=== PATIENT | female | born 1985 | race Caucasian/White ===

== ENCOUNTER 2016-10-06 05:05 | Inpatient (IN) | payer MEDICAID ==
[~2016-10-06 05:05] MED LIST: cefOXitin 2 GM in Sodium Chloride 0.9% 50 ML IV ONE
[2016-10-06] MEDS ORDERED: Scopolamine 1.5 MG Transdermal Patch TOP SCH (05:30)
[2016-10-06] MEDS ORDERED: Celecoxib 200 MG Cap PO ONE (05:30)
[2016-10-06] MEDS ORDERED: Gabapentin 300 MG Cap PO ONE (05:30)
[2016-10-06] MEDS ORDERED: Dextrose 5%-Lactated Ringers 1,000 ML IV SCH (05:30)
[2016-10-06] MEDS ORDERED: Acetaminophen 500 MG Tab PO ONE (05:30)
[2016-10-06] MEDS ORDERED: Bupivacaine 0.5%/EPINEPHrine 1:200,000 50 ML MDV ONE (06:46)
[2016-10-06] MEDS ORDERED: Albuterol/Ipratropium 3.0-0.5 MG/3 ML Neb Soln NEB ONE (07:00)
[2016-10-06] MEDS ORDERED: fentaNYL 250 MCG/5 ML SDV ONE ×2 (07:09→07:55)
[2016-10-06] MEDS ORDERED: Dexamethasone 4 MG/ML SDV ONE (07:09)
[2016-10-06] MEDS ORDERED: Ondansetron 4 MG/2 ML SDV ONE (07:09)
[2016-10-06] MEDS ORDERED: Neostigmine Methylsulfate 1 MG/ML 5 ML Syringe ONE (07:09)
[2016-10-06] MEDS ORDERED: Propofol 200 MG/20 ML SDV ONE (07:09)
[2016-10-06] MEDS ORDERED: Rocuronium 50 MG/5 ML Vial ONE ×2 (07:09→08:31)
[2016-10-06] MEDS ORDERED: cefOXitin 2 GM in Sodium Chloride 0.9% 50 ML IV ONE (07:15)
[2016-10-06] MEDS ORDERED: HYDROmorphone/Normal Saline 15 MG/30 ML PCA IV PRN (07:29)
[2016-10-06] MEDS ORDERED: Naloxone 0.4 MG/ML SDV IV PRN (07:29)
[2016-10-06] MEDS ORDERED: Ketamine 500 MG/5 ML MDV IV SCH (07:30)
[2016-10-06] MEDS ORDERED: Ropivacaine 49 ML, Dexamethasone 8 MG, EPINEPHrine 0.4 MG, Sodium Chloride 0.9% 28.6 ML NERVRT SCH ×4 (07:30)
[2016-10-06] MEDS ORDERED: Lidocaine 2% 100 MG/5 ML Syringe IVPUSH ONE (07:30)
[2016-10-06] MEDS ORDERED: Lactated Ringers 1,000 ML ONE ×2 (07:55)
[2016-10-06] MEDS ORDERED: Meropenem 500 MG SDV ONE (08:48)
[2016-10-06] MEDS ORDERED: Insulin Aspart 100 Units/ML 3 ML Pen SUBCUT SCH (09:30)
[2016-10-06] MEDS: Lidocaine 0.4%/D5W 2 GM/500 ML BAG IV SCH ×2 (10:00→15:00)
[2016-10-06] MEDS ORDERED: Albuterol/Ipratropium 3.0-0.5 MG/3 ML Neb Soln INH PRN (10:48)
[2016-10-06] MEDS ORDERED: Metoclopramide 10 MG/2 ML SDV IVPUSH PRN (10:57)
[2016-10-06] MEDS ORDERED: 50% Dextrose in Water 50 ML Syringe IV PRN (10:59)
[2016-10-06] MEDS ORDERED: diphenhydrAMINE 50 MG/ML SDV IVPUSH PRN (10:59)
[2016-10-06] MEDS ORDERED: SCOPOLAMINE PATCH CHECK TOP SCH (11:00)
[2016-10-06] MEDS ORDERED: Glucagon,Human Recombinant 1 MG Vial IM PRN (11:00)
[2016-10-06] MEDS ORDERED: SCOPOLAMINE PATCH ASK TOP SCH (11:00)
[2016-10-06] MEDS ORDERED: Ondansetron 4 MG/2 ML SDV IVPUSH PRN (11:00)
[2016-10-06] MEDS ORDERED: Pantoprazole 40 MG Vial IVPUSH SCH (11:00)
[2016-10-06] MEDS ORDERED: Labetalol 20 MG/4 ML Syringe IVPUSH PRN (11:00)
[2016-10-06] MEDS ORDERED: Insulin Aspart 100 Units/ML 3 ML Pen SUBCUT PRN (11:00)
[2016-10-06] MEDS: hydrOXYzine HCl 50 MG/ML SDV IM PRN ×2 (11:07→22:15)
[2016-10-06] MEDS: Dextrose 5%-Lactated Ringers 1,000 ML IV SCH ×2 (11:13→23:14)
[2016-10-06] MEDS ORDERED: Acetaminophen 325 MG Tab PO SCH (12:00)
[2016-10-06] MEDS: Albuterol/Ipratropium 3.0-0.5 MG/3 ML Neb Soln INH SCH ×3 (12:31→21:26)
[2016-10-06] MEDS: Gabapentin 300 MG Cap PO SCH ×2 (13:50→20:54)
[2016-10-06] MEDS: cefOXitin 2 GM in Sodium Chloride 0.9% 50 ML IV SCH ×2 (13:50→20:53)
[2016-10-06] MEDS: SCOPOLAMINE PATCH PLACEMENT TOP SCH (13:52)
[2016-10-06] MEDS ORDERED: MVI, Adult with Vitamin K 10 ML, Thiamine 200 MG, Chromium/Copper/Mang/Selen/Zn 1 ML in... IV SCH ×4 (16:00)
[2016-10-06] MEDS: Heparin Sodium 5,000 Units/ML Vial SUBCUT SCH (17:05)
[2016-10-06] MEDS: Acetaminophen/HYDROcodone 325-5 MG Tab PO PRN ×2 (17:06→20:54)
[2016-10-06] MEDS ORDERED: Insulin Detemir 100 Units/ML 3 ML Pen SUBCUT SCH (21:00)
[2016-10-06] MEDS ORDERED: Insulin Aspart 100 Units/ML 3 ML Pen SUBCUT ONE (21:10)
[2016-10-06] MEDS ORDERED: HYDROmorphone/Normal Saline 15 MG/30 ML PCA IV SCH (23:45)
[2016-10-07] MEDS: Lidocaine 0.4%/D5W 2 GM/500 ML BAG IV SCH (00:40)
[2016-10-07] MEDS ORDERED: Lidocaine 0.4%/D5W 2 GM/500 ML BAG IV SCH (01:45)
[2016-10-07] MEDS: cefOXitin 2 GM in Sodium Chloride 0.9% 50 ML IV SCH ×2 (02:35→08:15)
[2016-10-07] MEDS ORDERED: Insulin Aspart 100 Units/ML 3 ML Pen SUBCUT ONE (05:06)
[2016-10-07] MEDS ORDERED: Dextrose 5%-Lactated Ringers 1,000 ML IV SCH (05:15)
[2016-10-07] MEDS: Heparin Sodium 5,000 Units/ML Vial SUBCUT SCH (06:05)
[2016-10-07] MEDS: Albuterol/Ipratropium 3.0-0.5 MG/3 ML Neb Soln INH SCH (07:04)
[2016-10-07] MEDS ORDERED: Acetaminophen/HYDROcodone 325-10 MG Tab PO PRN (07:54)
[2016-10-07] MEDS ORDERED: Celecoxib 200 MG Cap PO SCH (08:00)
[2016-10-07 08:05] VITALS: BP 116/66
[2016-10-07] MEDS: Gabapentin 300 MG Cap PO SCH (08:09)
[2016-10-07] MEDS: SCOPOLAMINE PATCH PLACEMENT TOP SCH (08:16)
[2016-10-08] MEDS ORDERED: Cyanocobalamin (Vitamin B12) 1,000 MCG/ML SDV IM ONE (09:00)
--- NOTE | 2016-10-09 09:04 | CR ---
Postop revision jejunostomy. No gross evidence for contrast leakage. Nondilated small bowel loops.
--- NOTE | 2016-10-09 14:17 | PN ---
DATE OF SERVICE: 10/07/2016 The patient has been afebrile with stable vital signs. Pain control is still a little bit of an issue. She is on PRN PHYSICAL THERAPIST presently. I think we will go up to some higher dose hydrocodone with her [place]. Blood sugar is also quite high, and when it gets high the patient controls it by means of the sliding scale. The IV will be keet open and will go up to a regular diet from the full liquid, which should probably be helpful in terms of the blood sugar control. If blood sugar control becomes reasonable and pain control is also satisfactory with the adjustments, she may be ready for discharge home later today. Nursing will call when and if that decision is being made. Regan Rendon MD /[id number]
--- NOTE | 2016-10-10 12:18 | OR ---
DATE OF PROCEDURE: 10/06/2016 PREOPERATIVE DIAGNOSIS: Partial small-bowel obstruction. POSTOPERATIVE DIAGNOSIS: Partial small-bowel obstruction associated with: 1. Small-bowel volvulus. 2. Focal stricture at jejunojejunostomy. OPERATIVE PROCEDURE: Diagnostic laparoscopy with: 1. Reduction of small-bowel volvulus and closure of internal hernia (55172). 2. Small-bowel resection (44317). ANESTHESIA: General. SPINDLE REPAIRER: Laurie Huntley PA-C. INDICATIONS FOR PROCEDURE: This is a 30-year-old, status post previous Alysa-en-Y gastric bypass, presenting with postprandial crampy abdominal pain. The plan is to proceed with diagnostic laparoscopy with reduction of any volvulus that might be identified as well as lysis of adhesions and/or small-bowel resection. Potential risks of the procedure including bleeding, infection, leaks from various GI tract closures, possible recurrent or persistent symptoms over time were all reviewed along with remote possibility of cardiopulmonary, septic, or hemorrhagic complications leading to were discussed, and the patient wishes to proceed. As discussed with the patient preoperatively, if the jejunojejunostomy needs to be resected, we would reconstruct that with a more distal configuration. The latter may result in more frequent loose bowel movements and potential malnutrition, but it would likely result in improved metabolic status of the patient. DETAILS OF PROCEDURE: The patient was taken to the operating room and after general endotracheal anesthesia was induced, she was placed in a lithotomy position. A Galarza catheter was inserted and the abdomen was then prepped and draped, and a left lower quadrant transverse incision was made. The peritoneal cavity entered under direct vision with an Optiview trocar and inflated to 15 mmHg pressure with CO2. Laparoscope was then reinserted. No underlying trocar insertion site injuries were seen. Additionally, 4 trocars were placed across the upper and mid abdomen and general exploration was undertaken. The patient was noted to have a focal volvulus of the Alysa limb and the biliary pancreatic limb along with the jejunojejunostomy through a defect and the mesentery underlying the jejunojejunostomy. This was reduced at this point and at that point, the patient was noted to have what appeared to be a focal stricture where the Alysa limb entered the jejunojejunostomy. The decision was made at this point to divide that and then reconstruct the jejunojejunostomy with more distal configuration as outlined above. The Alysa limb was measured at this point to be 45 cm from the gastrojejunostomy. We did not want to be overly aggressive in this case and given this, the Alysa limb was divided more or less flush with the jejunojejunostomy with a CHINEDU stapler. A small amount of mesentery was then divided and again the final Alysa limb at this point was 45 cm in length. We wished not to be overly aggressive in this case and the ileocecal valve was identified and the small bowel then traced out 275 cm proximal to that, at that point the Alysa limb was anastomosed to the small bowel at that location with 2 internal firings of the CHINEDU puga loads and the common opening was closed transversely with the purple CHINEDU loads. The underlying mesenteric defect, which was now a new mesenteric defect, was closed with a series of 0 Ethibond sutures and also reinforced with fibrin sealant. Of note, the biliopancreatic limb was marked out at 410 cm. At this point, the abdomen was irrigated with antibiotic-containing saline solution. No further problems were noted. The trocars were removed. The peritoneal cavity was deflated. The fascia at the 12 mm sites was closed with 0 Vicryl stitch and the skin with 4-0 Vicryl skin stitch. Physician assistant plant control operator, Laurie Huntley, played an essential role in assisting in this case, helping to position the patient, retract structures as needed, as well as suturing and cutting sutures when indicated. Her presence improved the patient's safety and decreased the operative time. Regan Rendon MD /[id number]
--- NOTE | 2016-10-22 17:37 | DISCH ---
FINAL DIAGNOSES: 1. Partial small bowel obstruction associated with;. a. Small bowel volvulus. b. Focal stricture, jejunojejunostomy. 2. Bariatric surgery status. 3. History of depression. 4. History of type 1 diabetes mellitus. 5. History of peripheral neuropathy. 6. History of hyperlipidemia. 7. Marginal ulcer requiring esophagogastrectomy. OPERATIVE PROCEDURE: This was done on 10/06/2016, diagnostic laparoscopy with; 1. Reduction of small bowel volvulus and closure of internal hernia. 2. Small bowel resection. HOSPITAL COURSE: This is a 30-year-old status post Alysa-en-Y gastric bypass. In the more recent past, she has had esophagogastrectomy with Alysa-en-Y reconstruction for a marginal ulcer that was refractory to medical management. She now presents with postprandial crampy abdominal pain. On the day of admission, the patient underwent a diagnostic laparoscopy and was noted to have a degree of small bowel volvulus, along with some stricturing at the jejunojejunostomy. The volvulus was reduced and internal hernia corrected, and small bowel resection accomplished to reconnect the Alysa limb somewhat distally on the common limb to reduce the area of partial obstruction at that level. Postoperatively, the patient had no significant problems. She was converted over to oral pain medication and was discharged home on postop day #1, tolerating at that time a regular post-gastric bypass diet. She will be following up with Dr. Rendon in [facility] a week from Sunday. DISCHARGE MEDICATIONS: Medication on discharge will include her home medications some additional [place], #40, in addition to her usual doses that she had at home.
== END 2016-10-07 10:58 | disposition home or self-care (01) | DRG 346 ==
LOC: JP.SDSSCHI 05:05 → JP.SDS 05:05 → UNDOADMIN 05:05 → EDSTATUS 08:45 → JP.SDSSCHI 09:50 → JP.2SS 09:50
PROVIDERS: ADMIT Surgery; ATTEND Surgery
PROC: 0DSA4ZZ Reposition Jejunum, Percutaneous Endoscopic Approach (ICD-10-PCS; principal; 2016-10-06)
PROC: 0DB84ZX Excision of Small Intestine, Percutaneous Endoscopic Approach, Diagnostic (ICD-10-PCS; principal; 2016-10-06)
DX: K56.69 Other intestinal obstruction (principal); K56.2 Volvulus
CPT/HCPCS: 36415; 74240; 74240-26; 80053; 82607; 82728; 82962; 83036; 83735; 84100; 84425; 85027; 88307; 94640-76; A9270-GY; C9113; J0171; J0694; J1100; J1170; J1644; J2001; J2185; J2405; J2704; J2795; J3010; J3410; J3411; J7030; J7042; J7050; J7120; J7620

== ENCOUNTER 2017-06-07 05:25 | Day surgery (SDC) | payer MEDICAID ==
[~2017-06-07 05:25] MED LIST changes: +Cyanocobalamin (Vitamin B12) 1,000 MCG/ML SDV IM ONE; +Glycopyrrolate 0.2 MG/ML 2 ML SDV IVPUSH ONE; +Lactated Ringers 1,000 ML IV ONE; +MVI, Adult with Vitamin K 10 ML, Thiamine 200 MG, Chromium/Copper/Mang/Selen/Zn 1 ML in... IV ONE; +Midazolam 1 MG/ML 2 ML SDV ONE; +Propofol 200 MG/20 ML SDV ONE; -cefOXitin 2 GM in Sodium Chloride 0.9% 50 ML IV ONE; +fentaNYL 100 MCG/2 ML SDV ONE
[2017-06-07] MEDS ORDERED: Lactated Ringers 1,000 ML IV SCH (06:30)
[2017-06-07] MEDS ORDERED: Cyanocobalamin (Vitamin B12) 1,000 MCG/ML SDV IM ONE (06:30)
[2017-06-07] MEDS ORDERED: Propofol 200 MG/20 ML SDV ONE (07:07)
[2017-06-07] MEDS ORDERED: Midazolam 1 MG/ML 2 ML SDV ONE (07:07)
[2017-06-07] MEDS ORDERED: fentaNYL 100 MCG/2 ML SDV ONE (07:07)
[2017-06-07] MEDS ORDERED: Glycopyrrolate 0.2 MG/ML 2 ML SDV IVPUSH ONE (07:30)
[2017-06-07] MEDS ORDERED: MVI, Adult with Vitamin K 10 ML, Thiamine 200 MG, Chromium/Copper/Mang/Selen/Zn 1 ML in... IV ONE ×4 (09:00)
[2017-06-07 09:33] VITALS: BP 107/67
--- NOTE | 2017-06-07 11:29 | OR ---
DATE OF PROCEDURE: 06/07/2017 PREOPERATIVE DIAGNOSIS: Dysphagia, status post Alysa-en-Y gastric bypass. POSTOPERATIVE DIAGNOSIS: Dysphagia, status post Alysa-en-Y gastric bypass with normal examination other than for retained fragments of solid food within the esophagus. OPERATIVE PROCEDURE: Upper GI endoscopy. ANESTHESIA: IV sedation. INDICATION FOR PROCEDURE: The patient is status post a Alysa-en-Y gastric bypass followed by a more recent revision that being done in December 2015, presenting with some dysphagia as well as some discomfort after eating. The plan is to proceed with an upper GI endoscopy with biopsies and/or dilation as indicated. Potential risks including bleeding and perforation were discussed, and the patient wishes to proceed. DETAILS OF PROCEDURE: The patient was taken to the operating room and placed in a left lateral decubitus position. IV sedation was administered, after which the upper GI endoscope was passed orally through the length of the esophagus, through the esophagojejunostomy, and roughly 3 cm into the Alysa limb. There were some retained scattered solid yellow fragments of food in the esophagus, but this was otherwise associated with absolutely no areas of inflammation or stricturing. The esophagus, esophagojejunostomy, and the visualized portion of the Alysa limb were completely all uninflamed and completely wide open. There was no retained food or fluid within the Alysa limb, i.e. no indication of a more distal obstruction. The scope was then withdrawn and the procedure then concluded. The patient may be developing some esophageal dysmotility related to her longstanding type 1 diabetes mellitus. She will be instructed to drink some liquids after a meal and then web marketing intern upright position for at least a few minutes to help washout the contents in the esophagus. From a p.r.n. standpoint, she can take Gaviscon if she is having some burning sensation as well. She will follow up with Laurie Huntley in 1 month. Regan Rendon MD /[id number]
== END 2017-06-07 09:35 | disposition home or self-care (01) ==
LOC: JP.SDS 05:25 → EEVIPCON 05:25 → JP.SDS 09:35
PROVIDERS: ATTEND Surgery
DX: R13.10 Dysphagia, unspecified (principal); T18.128A Food in esophagus causing other injury, initial encounter; E11.9 Type 2 diabetes mellitus without complications; E66.9 Obesity, unspecified; F32.9 Major depressive disorder, single episode, unspecified; K21.9 Gastro-esophageal reflux disease without esophagitis; Z98.84 Bariatric surgery status; X58.XXXA Exposure to other specified factors, initial encounter; Z88.8 Allergy status to other drugs, medicaments and biological substances; F17.200 Nicotine dependence, unspecified, uncomplicated
CPT/HCPCS: 43235; 82962; J2250; J2704; J3010; J3411; J3420; J7120; J3490

== ENCOUNTER 2017-12-03 07:10 | Inpatient (IN) | payer MEDICAID ==
[~2017-12-03 07:10] MED LIST changes: -Cyanocobalamin (Vitamin B12) 1,000 MCG/ML SDV IM ONE; -Glycopyrrolate 0.2 MG/ML 2 ML SDV IVPUSH ONE; -Lactated Ringers 1,000 ML IV ONE; -MVI, Adult with Vitamin K 10 ML, Thiamine 200 MG, Chromium/Copper/Mang/Selen/Zn 1 ML in... IV ONE
[2017-12-03] MEDS ORDERED: Glycopyrrolate 0.2 MG/ML 2 ML SDV IVPUSH ONE (08:00)
[2017-12-03] MEDS: Dextrose 5%-Lactated Ringers 1,000 ML IV SCH ×3 (08:08→23:25)
[2017-12-03] MEDS ORDERED: Naloxone 0.4 MG/ML SDV IV PRN (11:07)
[2017-12-03] MEDS ORDERED: HYDROmorphone/Normal Saline 15 MG/30 ML PCA IV PRN (11:07)
[2017-12-03] MEDS ORDERED: Glucose Gel 15 GM in 37.5 GM Tube PO PRN (11:18)
[2017-12-03] MEDS ORDERED: 50% Dextrose in Water 50 ML Syringe IVPUSH PRN (11:18)
[2017-12-03] MEDS ORDERED: Glucagon,Human Recombinant 1 MG Vial IM PRN (11:18)
[2017-12-03] MEDS: Pantoprazole 40 MG Vial IV SCH (13:20)
[2017-12-03] MEDS: Insulin Aspart 100 Units/ML 3 ML Pen SUBCUT PRN ×2 (17:10→21:01)
[2017-12-03] MEDS: ClonazePAM 1 MG Tab PO SCH (21:00)
[2017-12-03] MEDS ORDERED: Insulin Detemir 100 Units/ML 3 ML Pen SUBCUT SCH (21:00)
[2017-12-03] MEDS ORDERED: Venlafaxine 75 MG Cap.ER PO ONE (21:00)
[2017-12-03] MEDS: Gabapentin 300 MG Cap PO SCH (21:02)
[2017-12-03] MEDS: Insulin Detemir 100 Units/ML 3 ML Pen SUBCUT SCH (21:03)
[2017-12-03] MEDS: lamoTRIgine 100 MG Tab PO SCH (21:03)
[2017-12-04] MEDS: Ondansetron 4 MG/2 ML SDV IV PRN ×2 (01:38→17:41)
[2017-12-04] MEDS ORDERED: cefOXitin 2 GM Vial ONE (06:55)
[2017-12-04] MEDS ORDERED: fentaNYL 250 MCG/5 ML SDV ONE ×3 (07:47→11:59)
[2017-12-04] MEDS ORDERED: Rocuronium 50 MG/5 ML Vial ONE (07:48)
[2017-12-04] MEDS ORDERED: Succinylcholine 200 MG/10 ML MDV ONE (07:48)
[2017-12-04] MEDS ORDERED: Glycopyrrolate 0.2 MG/ML 5 ML MDV ONE (07:48)
[2017-12-04] MEDS ORDERED: Ondansetron 4 MG/2 ML SDV ONE (07:48)
[2017-12-04] MEDS ORDERED: Neostigmine Methylsulfate 1 MG/ML 5 ML Syringe ONE (07:48)
[2017-12-04] MEDS ORDERED: Dexamethasone 4 MG/ML SDV ONE (07:48)
[2017-12-04] MEDS ORDERED: Propofol 200 MG/20 ML SDV ONE (07:48)
[2017-12-04] MEDS ORDERED: Ropivacaine 44 ML, Dexamethasone 8 MG, EPINEPHrine 0.4 MG, Sodium Chloride 0.9% 33.6 ML NERVRT SCH ×4 (08:30)
[2017-12-04] MEDS ORDERED: cefOXitin 2 GM in Sodium Chloride 0.9% 50 ML IV ONE (08:30)
[2017-12-04] MEDS ORDERED: Ketamine 500 MG/5 ML MDV IV SCH (08:30)
[2017-12-04] MEDS ORDERED: Lidocaine 2% 100 MG/5 ML Syringe IVPUSH ONE (08:30)
[2017-12-04] MEDS ORDERED: Lidocaine 0.4%/D5W 2 GM/500 ML BAG IV SCH (08:30)
[2017-12-04] MEDS: Dextrose 5%-Lactated Ringers 1,000 ML IV SCH (08:55)
[2017-12-04] MEDS ORDERED: Venlafaxine 75 MG Cap.ER PO SCH (09:00)
[2017-12-04] MEDS: lamoTRIgine 100 MG Tab PO SCH ×2 (10:37→21:37)
[2017-12-04] MEDS: Gabapentin 300 MG Cap PO SCH ×3 (10:37→21:38)
[2017-12-04] MEDS: ClonazePAM 1 MG Tab PO SCH ×3 (10:37→21:38)
[2017-12-04] MEDS: Insulin Aspart 100 Units/ML 3 ML Pen SUBCUT PRN ×4 (11:05→21:28)
[2017-12-04] MEDS ORDERED: Labetalol 20 MG/4 ML Syringe ONE (12:38)
[2017-12-04] MEDS: Pantoprazole 40 MG Vial IV SCH (14:48)
[2017-12-04] MEDS: Lactated Ringers 1,000 ML IV SCH (14:58)
[2017-12-04] MEDS ORDERED: SCOPOLAMINE PATCH CHECK TOP SCH (15:00)
[2017-12-04] MEDS ORDERED: hydrOXYzine HCl 100 MG/2 ML SDV IM PRN (15:00)
[2017-12-04] MEDS ORDERED: diphenhydrAMINE 50 MG/ML SDV IVPUSH PRN (15:00)
[2017-12-04] MEDS ORDERED: Metoclopramide 10 MG/2 ML SDV IVPUSH PRN (15:00)
[2017-12-04] MEDS ORDERED: Labetalol 20 MG/4 ML Syringe IVPUSH PRN (15:00)
[2017-12-04] MEDS: Acetaminophen Soln 650 MG/20.3 ML UD Cup PO SCH ×2 (15:30→21:32)
[2017-12-04] MEDS ORDERED: MVI, Adult with Vitamin K 10 ML, Thiamine 200 MG, Chromium/Copper/Mang/Selen/Zn 1 ML in... IV SCH ×4 (16:00)
[2017-12-04] MEDS: cefOXitin 2 GM in Sodium Chloride 0.9% 50 ML IV SCH ×2 (16:55→22:35)
[2017-12-04] MEDS ORDERED: cefOXitin 2 GM in Sodium Chloride 0.9% 50 ML IV SCH (18:00)
[2017-12-04] MEDS: Heparin Sodium 5,000 Units/ML Vial SUBCUT SCH (21:27)
[2017-12-04] MEDS: Insulin Detemir 100 Units/ML 3 ML Pen SUBCUT SCH (21:28)
[2017-12-04] MEDS: Venlafaxine 75 MG Cap.ER PO SCH (21:38)
[2017-12-05] MEDS: Lactated Ringers 1,000 ML IV SCH ×2 (03:08→11:08)
[2017-12-05] MEDS: Dextrose 5%-Lactated Ringers 1,000 ML IV SCH (03:09)
[2017-12-05] MEDS ORDERED: Iohexol 647 MG/ML 50 ML SDV PO STA (03:49)
[2017-12-05] MEDS: Acetaminophen Soln 650 MG/20.3 ML UD Cup PO SCH (03:59)
[2017-12-05] MEDS: cefOXitin 2 GM in Sodium Chloride 0.9% 50 ML IV SCH ×2 (03:59→10:55)
[2017-12-05] MEDS ORDERED: Insulin Aspart 100 Units/ML 3 ML Pen SUBCUT ONE (04:21)
[2017-12-05] MEDS: Ondansetron 4 MG/2 ML SDV IV PRN (05:01)
[2017-12-05] MEDS ORDERED: Ondansetron 4 MG Tab.DIS PO PRN (07:19)
[2017-12-05] MEDS: Insulin Aspart 100 Units/ML 3 ML Pen SUBCUT PRN ×5 (07:20→20:52)
[2017-12-05] MEDS: Heparin Sodium 5,000 Units/ML Vial SUBCUT SCH ×2 (07:32→20:49)
[2017-12-05] MEDS: Acetaminophen/HYDROcodone 325-5 MG Tab PO PRN ×3 (07:57→16:40)
[2017-12-05] MEDS ORDERED: Celecoxib 200 MG Cap PO SCH (08:00)
[2017-12-05] MEDS: lamoTRIgine 100 MG Tab PO SCH ×2 (08:02→20:50)
[2017-12-05] MEDS: Gabapentin 300 MG Cap PO SCH ×3 (08:02→20:50)
[2017-12-05] MEDS: ClonazePAM 1 MG Tab PO SCH ×3 (08:10→20:49)
--- NOTE | 2017-12-05 09:03 | CR ---
UGI wo KUB HISTORY: eval R -Y GBP FINDINGS: After administration of oral contrast, upright views were obtained. Post operative changes gastric bypass. Surgical drains in place. No evidence for leak. Contrast passes freely into proximal small bowel loops. IMPRESSION: No evidence for leak or obstruction.
--- NOTE | 2017-12-05 09:04 | PN ---
DATE OF SERVICE: 12/05/2017 SUBJECTIVE: Savannah is postop day #1. Vital signs have been stable. Her pain has been controlled. Oral intake 1960. Urine output via Galarza catheter 1554. Blood sugar was 398, she received 4 units of Lantus and 2 units of NovoLog; next blood sugar was greater than 500, she received 10 units of NovoLog; and blood sugar this a.m. was 430 and she received 10 units of NovoLog. She is managing her owned dosing of insulin NovoLog and Lantus but administered per nursing staff. Her last hemoglobin A1c was 4 something, she states. OBJECTIVE: GENERAL: Savannah Damon is a pleasant 32-year-old female. VITAL SIGNS: Height is 5 feet 4.96 inches, weight is 194 pounds. TPR is 97.1, 107, 16. Blood pressure is 96/59. HEENT: Negative. NECK: Supple. HEART: Regular rate and rhythm. LUNGS: Clear. ABDOMEN: Dressing was removed, sutures intact. Abdominal binder reapplied. EXTREMITIES: SCDs are on and there is no peripheral edema. ASSESSMENT: 1. EGD, 12/03/2017. 2. Diagnostic laparoscopy with closure of gastric ulcer penetrating between the pouch and bypassed stomach, repair of paraesophageal diaphragmatic hernia with mesh, and small bowel resection, for penetrating ulcer between the gastric pouch and bypassed stomach, large paraesophageal diaphragmatic hernia, and devascularized blind end of the Alysa limb of the small bowel. Date of surgery, 12/04/2017; surgeon, Regan Rendon M.D. PLAN: 1. Dressing off, september shower. 2. Discontinue Galarza catheter. 3. [place] 5/325 mg 1 to 2 q.4 hours p.r.n. pain. 4. Discontinue UTILITY WORKER PRODUCTION. 5. Discontinue continuous pulse ox and discontinue cardiac technologist when lidocaine is in. 6. Zofran ODT 4 mg q.4 hours p.r.n. nausea or vomiting. 7. Diet is bariatric, step-2 double portions with serial. 8. Good pulmonary toilet. 9. We will evaluate p.r.n. or in the a.m. and continue checking blood sugars as directed. Laurie Huntley PA-C /[id number]
[2017-12-05] MEDS ORDERED: MVI, Adult with Vitamin K 10 ML, Thiamine 200 MG, Chromium/Copper/Mang/Selen/Zn 1 ML in... IV SCH ×4 (11:09)
[2017-12-05] MEDS: Pantoprazole 40 MG Vial IV SCH (12:24)
[2017-12-05] MEDS ORDERED: Scopolamine 1.5 MG Transdermal Patch TOP ONE (12:30)
[2017-12-05] MEDS: Bisacodyl 5 MG Tab PO SCH ×2 (19:14→20:49)
[2017-12-05] MEDS: Docusate Sodium 100 MG Cap PO SCH ×2 (19:14→20:49)
[2017-12-05] MEDS: Acetaminophen/oxyCODONE 325-5 MG Tab PO PRN ×2 (20:48→21:32)
[2017-12-05] MEDS: Venlafaxine 75 MG Cap.ER PO SCH (20:50)
[2017-12-05] MEDS: Insulin Detemir 100 Units/ML 3 ML Pen SUBCUT SCH (20:51)
[2017-12-06] MEDS: Lactated Ringers 1,000 ML IV SCH (02:36)
[2017-12-06] MEDS: Acetaminophen/oxyCODONE 325-5 MG Tab PO PRN ×2 (02:55→07:28)
[2017-12-06] MEDS: Insulin Aspart 100 Units/ML 3 ML Pen SUBCUT PRN (05:48)
[2017-12-06 06:49] VITALS: BP 101/56
--- NOTE | 2017-12-06 08:13 | DISCH ---
ADMISSION DIAGNOSES: 1. Gastroesophageal reflux disease. 2. SP Alysa-en-Y gastric bypass surgery. 3. Unspecified surgical malabsorption. 4. B12 deficiency. 5. Type 1 diabetes mellitus. 6. Peripheral neuropathy. 7. Depression. 8. Hyperlipidemia. DISCHARGE DIAGNOSES: 1. EGD 12/04/2017, which revealed gastric ulcer penetrating between the pouch and bypass stomach. 2. Diagnostic laparoscopy with closure of gastric ulcer penetrating between the pouch and bypass stomach. 3. Repair of paraesophageal diaphragmatic hernia with mesh. 4. Small bowel resection for penetrating ulcer between the gastric pouch and bypass stomach. 5. Large paraesophageal diaphragmatic hernia and devascularized blind end of the Alysa limb of the small bowel. Date of surgery 12/04/2017. Surgeon, Regan Rendon MD. HISTORY: Savannah Damon is a 32-year-old female with GERD refractory to medical management. She is status post Alysa-en-Y gastric bypass revision. She had an EGD on 12/04/2017, and had surgery the same day as noted above. She had no operative complications. On postoperative day 1, her upper GI was normal. She was started on a step 2 double portion diet with cereal. Her IV was discontinued. She was started on oral pain medication. She managed her insulin dosages based on her Accu-Cheks like she does at home. Later in the day, her pain was not managed after the lidocaine was infused. She was changed to Percocet, which she tolerated much better. On postoperative day #2, she was able to be discharged to home. Pain was managed. Vital signs stable. Activity was good. Tolerated a step 2 double portion gastric bypass diet and she was advanced to step 3 prior to discharge. Oral intake and output adequate. She did have 1 bowel movement. Blood sugars last checked was 131 and 173. PHYSICAL EXAMINATION: GENERAL: Savannah Damon is a 32-year-old female. VITAL SIGNS: Height is 5 feet 4.96 inches. Weight is 196 pounds. TPR 96.8, 93, 18, blood pressure 101/56. HEENT: Negative. NECK: Supple. HEART: Regular rate and rhythm. LUNGS: Clear. ABDOMEN: Sutures intact in her trocar sites. Abdominal binder is on. EXTREMITIES: Without peripheral edema. DISPOSITION: Discharged to home. CONDITION: Stable and improving. FOLLOWUP APPOINTMENT: Laurie Huntley PA-C on 12/14/2017 at 10:00 a.m. HOME MEDICATIONS: 1. Percocet 5/325 mg one to two tablets every 4 hours p.r.n. pain #40. 2. Celebrex 200 mg daily #14 take with food. She is to resume her home medications: 1. Vitamin D3, 1000 international units daily. 2. B12, 1000 mcg sublingual daily. 3. Flexeril 10 mg 3 times daily p.r.n. muscle spasm. 4. Ferrous sulfate 325 mg oral daily. 5. Gabapentin 300 mg oral 3 times a day. 6. Lantus 3 units subcutaneous at bedtime. 7. NovoLog 1-2 units subcu 3 times a day daily with meals. 8. Gaviscon use as directed. 9. Multivitamin 1 tablet daily. She will increase this to b.i.d. 10.Omeprazole 40 mg b.i.d. 11.Zofran ODT 4 mg q.4 hours p.r.n. nausea, vomiting. 12.MiraLax 17 g p.r.n. constipation. 13.Effexor ER 150 mg oral daily. 14.B complex 1 each daily. 15.Klonopin 1 mg 3 times a day. 16.Lamictal 200 mg oral twice daily. DISCHARGE DIET: Diet after discharge, step-3 gastric bypass diet. Drink 8 to 10 glasses of water a day. ACTIVITY: No lifting greater than 10 pounds for 2 weeks. Other activity, walk about 6 times inside your home. Driving, do not drive while on pain medication. May shower. DISCHARGE INSTRUCTIONS: Notify provider if any fever, increased pain, nausea, or vomiting. Keep site clean and dry. Wear abdominal binder for 2 weeks and then as tolerated. Use incentive spirometer 10 times every hour while awake. Note for work given on stating Savannah has been under my care for medical reasons. No work until she has her next clinic appointment on 12/14/2017.
[2017-12-06] MEDS ORDERED: Cyanocobalamin (Vitamin B12) 1,000 MCG/ML SDV IM ONE (09:00)
--- NOTE | 2017-12-10 12:51 | OR ---
DATE OF PROCEDURE: 12/04/2017 PREOPERATIVE DIAGNOSIS: Penetrating ulcer between gastric pouch and bypassed stomach. POSTOPERATIVE DIAGNOSES: 1. Penetrating ulcer between gastric pouch and bypassed stomach. 2. Large paraesophageal diaphragmatic hernia. 3. Devascularized portion of blind end of the Alysa limb, status post takedown of adhesions. OPERATIVE PROCEDURES: Diagnostic laparoscopy with; 1. Closure of gastric ulcer penetrating between pouch and bypassed stomach (94807). 2. Repair of paraesophageal diaphragmatic hernia with mesh (38456). 3. Small bowel resection (41045). ANESTHESIA: General. INDICATION FOR PROCEDURE: Please see notes dictated from 10/03/2017. The plan is to proceed with closure of the penetrating ulcer between the bypassed stomach and gastric pouch to alleviate the patient's ongoing problems with bile reflux. The potential risks of the procedure including bleeding, infection, possible need to proceed with an open procedure, possibility of some persistent symptoms postoperatively as well as the remote possibility of cardiopulmonary, septic, or hemorrhagic complications leading to were discussed, and the patient wishes to proceed. DETAILS OF PROCEDURE: The patient was taken to the operating room and placed in a supine position. After general endotracheal anesthesia was induced, she was converted to a lithotomy position. A Galarza catheter was placed, which was then removed at the end of the procedure. At 15 cm inferior and 5 cm left of the xiphoid process, a transverse incision was made, and the peritoneal cavity entered under direct vision with an Optiview trocar and inflated to 15 mmHg pressure with CO2. Bilateral subcostal transversus abdominis plane blocks were then placed using standard solution on each side and direct visualization of the needle tip in the correct plane via the laparoscopic vantage point. Five additional trocars were then placed across the upper and mid abdomen. The patient was noted to have significant paraesophageal diaphragmatic hernia with a portion of the Alysa limb, including the blind end, prolapsing in a plane anterior to the course of the gastric pouch and esophagus, which retracted up into the hiatal hernia. These areas were dissected downward. The peritoneum overlying the area of the hiatal hernia was then sequentially excised using a combination of electrocautery, blunt dissection and Harmonic scalpel dissection. Some other points were also divided with the staplers. Once this was reduced, the area of the ulceration between the posterior aspect of the gastric pouch, just proximal to the gastrojejunostomy was identified, and this was divided with a CHINEDU black load. Following division of that ulcer, both staple lines appeared to be intact. The diaphragmatic hernia was then repaired with a series of 0 Ethibond sutures reinforced with PTFE pledgets. These were placed primary posteriorly and one stitch was then also placed anteriorly. The posterior crural repair was then reinforced with a Phasix ST mesh with the Seprafilm side of the mesh being placed underlying the esophagus and gastric pouch, and the mesh being fixed in position with titanium tacking screws. During the course of dissection, several centimeters segment of the blind end of the Alysa limb was found to be devascularized. This was resected by means of the CHINEDU puga load and small bowel specimen delivered from the field. At that point, no further problems were noted. The areas of dissection were reinforced with fibrin sealant, and the trocars were then sequentially removed and the peritoneal cavity deflated. Incisions were closed with some 4-0 Vicryl skin stitch. The patient was taken to the recovery room in a satisfactory condition. Regan Rendon MD /[id number]
--- NOTE | 2017-12-11 07:40 | OR ---
DATE OF PROCEDURE: 12/03/2017 PREOPERATIVE DIAGNOSIS: Epigastric pain associated with bilious emesis and gastroesophageal reflux type symptoms. POSTOPERATIVE DIAGNOSES: 1. Epigastric pain associated with bilious emesis and gastroesophageal reflux type symptoms. 2. Penetrating ulcer between the gastric pouch and adjacent bypassed stomach resulting in ongoing bile reflux. PROCEDURE PERFORMED: Upper GI endoscopy with biopsies of gastric pouch for CLOtest. ANESTHESIA: IV sedation. INDICATION FOR PROCEDURE: This is a 32-year-old status post Alysa-en-Y gastric bypass presenting with some ongoing epigastric pain and heartburn-type symptoms and bilious emesis. Plan is to proceed with upper GI endoscopy and possible biopsies. Potential risks including bleeding and perforation were discussed, and the patient wishes to proceed. DETAILS OF PROCEDURE: The patient was taken to the operating room and placed in a left lateral decubitus position. IV sedation was administered, after which the upper GI endoscope was passed orally through the length of the esophagus and into the area of the gastric pouch. From the gastric pouch and esophagus just above this quite a bit of bile was present. There was an active ulcer present within the area of the gastrojejunostomy that extended into the bypassed portion of the stomach with the scope being able to clearly visualize into the bypassed stomach. This opening was not quite large enough to get the scope through the opening, but there was a large amount of bile coming back up into that and the overall picture was consistent with the patient's symptoms and will require surgical repair. The gastrojejunostomy itself was not stenotic, and otherwise, the visualized portion of the Alysa limb was unremarkable. Biopsies were obtained from the gastric pouch, sent for CLOtest for H. pylori. Minimal bleeding from the biopsy sites was seen and the procedure then concluded. The patient was taken to the recovery room in satisfactory condition. The plan will be to admit the patient for surgical correction of this problem tomorrow. Regan Rendon MD /[id number]
== END 2017-12-06 07:59 | disposition home or self-care (01) | DRG 327 ==
LOC: JP.SDS 07:10 → JP.MS 10:00
PROVIDERS: ADMIT Surgery; ATTEND Surgery
PROC: 0DB68ZX Excision of Stomach, Via Natural or Artificial Opening Endoscopic, Diagnostic (ICD-10-PCS; 2017-12-03)
PROC: 0DB64ZZ Excision of Stomach, Percutaneous Endoscopic Approach (ICD-10-PCS; principal; 2017-12-04)
PROC: 0BUT4JZ Supplement Diaphragm with Synthetic Substitute, Percutaneous Endoscopic Approach (ICD-10-PCS; principal; 2017-12-04)
PROC: 0DB84ZZ Excision of Small Intestine, Percutaneous Endoscopic Approach (ICD-10-PCS; principal; 2017-12-04)
PROC: 3E0M45Z Introduction of Adhesion Barrier into Peritoneal Cavity, Percutaneous Endoscopic Approach (ICD-10-PCS; principal; 2017-12-04)
DX: K25.9 Gastric ulcer, unspecified as acute or chronic, without hemorrhage or perforation (principal); K91.2 Postsurgical malabsorption, not elsewhere classified; K55.9 Vascular disorder of intestine, unspecified; K44.9 Diaphragmatic hernia without obstruction or gangrene; K21.9 Gastro-esophageal reflux disease without esophagitis; Z98.84 Bariatric surgery status; E53.8 Deficiency of other specified B group vitamins; E10.42 Type 1 diabetes mellitus with diabetic polyneuropathy; Z79.4 Long term (current) use of insulin; F32.9 Major depressive disorder, single episode, unspecified; Z79.899 Other long term (current) drug therapy; F41.9 Anxiety disorder, unspecified; Z90.49 Acquired absence of other specified parts of digestive tract; E78.2 Mixed hyperlipidemia; E55.9 Vitamin D deficiency, unspecified
CPT/HCPCS: 36415; 74240; 74240-26; 80053; 82607; 82728; 82746; 82962; 83735; 84100; 85027; 86850; 86900; 86901; 87081; 88304; 88307; 94762; A9270-GY; C1781; C9113; J0171; J0330; J0694; J1100; J1170; J1644; J2001; J2250; J2405; J2704; J2710; J2795; J3010; J3411; J3490; J7030; J7042; J7050; J7120; Q9967

== ENCOUNTER 2018-10-24 06:38 | Inpatient (IN) | payer MEDICAID ==
[2018-10-24] MEDS ORDERED: Acetaminophen 500 MG Tab PO ONE (06:45)
[2018-10-24] MEDS ORDERED: Meropenem 500 MG SDV ONE (07:00)
[2018-10-24] MEDS ORDERED: Rocuronium 50 MG/5 ML Vial ONE (07:07)
[2018-10-24] MEDS ORDERED: fentaNYL 250 MCG/5 ML SDV ONE (07:07)
[2018-10-24] MEDS ORDERED: Succinylcholine 200 MG/10 ML MDV ONE (07:07)
[2018-10-24] MEDS ORDERED: Glycopyrrolate 0.2 MG/ML 5 ML MDV ONE (07:07)
[2018-10-24] MEDS ORDERED: Dexamethasone 4 MG/ML SDV ONE (07:07)
[2018-10-24] MEDS ORDERED: Ondansetron 4 MG/2 ML SDV ONE (07:07)
[2018-10-24] MEDS ORDERED: Propofol 200 MG/20 ML SDV ONE (07:07)
[2018-10-24] MEDS ORDERED: Neostigmine Methylsulfate 1 MG/ML 5 ML Syringe ONE (07:07)
[2018-10-24] MEDS ORDERED: Dextrose 5%-Lactated Ringers 1,000 ML IV SCH (07:15)
[2018-10-24] MEDS ORDERED: Naloxone 0.4 MG/ML SDV IV PRN (07:46)
[2018-10-24] MEDS: Scopolamine 1.5 MG Transdermal Patch TRDERM SCH ×2 (07:59→20:15)
[2018-10-24] MEDS: HYDROmorphone/Normal Saline 15 MG/30 ML PCA IV PRN (08:13)
[2018-10-24] MEDS ORDERED: cefOXitin 2 GM in Sodium Chloride 0.9% 50 ML IV ONE (08:15)
[2018-10-24] MEDS ORDERED: Ropivacaine 44 ML, dexAMETHasone 8 MG, EPINEPHrine 0.4 MG, Sodium Chloride 0.9% 33.6 ML NERVRT SCH ×4 (08:30)
[2018-10-24] MEDS ORDERED: Ketamine 500 MG/5 ML MDV IV SCH (08:30)
[2018-10-24] MEDS ORDERED: Ketamine 50 MG in Sodium Chloride 0.9% 49.5 ML IV SCH (08:30)
[2018-10-24] MEDS ORDERED: Bupivacaine 0.5%/EPINEPHrine 1:200,000 50 ML MDV ONE (09:44)
[2018-10-24] MEDS ORDERED: fentaNYL 100 MCG/2 ML SDV ONE ×2 (09:56→10:19)
[2018-10-24] MEDS ORDERED: Insulin Lispro 100 Unit/ML 3 ML KwikPen SUBCUT ONE ×2 (11:15)
[2018-10-24] MEDS ORDERED: hydrOXYzine HCl 100 MG/2 ML SDV IM ONE (11:21)
[2018-10-24] MEDS ORDERED: Ondansetron 4 MG/2 ML SDV IVPUSH PRN (12:39)
[2018-10-24] MEDS ORDERED: Glucagon,Human Recombinant 1 MG Vial IM PRN (12:44)
[2018-10-24] MEDS ORDERED: Glucose Gel 15 GM in 37.5 GM Tube PO PRN (12:44)
[2018-10-24] MEDS ORDERED: 50% Dextrose in Water 50 ML Syringe IVPUSH PRN (12:44)
[2018-10-24] MEDS ORDERED: Lactated Ringers 1,000 ML IV SCH (12:45)
[2018-10-24] MEDS: Dextrose 5%-Lactated Ringers 1,000 ML IV SCH (12:47)
[2018-10-24] MEDS ORDERED: Calcium Carbonate 500 MG Tab.Chew PO PRN (14:14)
[2018-10-24] MEDS ORDERED: Pantoprazole 40 MG Vial IV SCH (14:30)
[2018-10-24] MEDS: ceFAZolin 2 GM in Premix Bag 1 BAG IV SCH ×2 (15:22→22:04)
[2018-10-24] MEDS: Pregabalin 100 MG Cap PO SCH ×2 (15:25→21:34)
[2018-10-24] MEDS: diphenhydrAMINE 50 MG/ML SDV IVPUSH SCH (16:04)
[2018-10-24] MEDS: Sodium Ferric Gluconate Cmplex 250 MG in Sodium Chloride 0.9% 100 ML IV SCH (16:43)
[2018-10-24] MEDS: Insulin Lispro 100 Unit/ML 3 ML KwikPen SUBCUT SCH ×2 (16:58→21:36)
[2018-10-24] MEDS: Cyclobenzaprine 10 MG Tab PO PRN (18:48)
[2018-10-24] MEDS: lamoTRIgine 100 MG Tab PO SCH (21:34)
[2018-10-24] MEDS: Insulin Glargine,Human Rec. Analog 100 Units/ML 3 ML Pen SUBCUT SCH (21:35)
[2018-10-24] MEDS: hydrOXYzine HCl 100 MG/2 ML SDV IM PRN (22:06)
[2018-10-25] MEDS: hydrOXYzine HCl 100 MG/2 ML SDV IM PRN ×2 (04:33→17:20)
[2018-10-25] MEDS: Insulin Lispro 100 Unit/ML 3 ML KwikPen SUBCUT SCH ×5 (05:50→21:59)
[2018-10-25] MEDS: HYDROmorphone/Normal Saline 15 MG/30 ML PCA IV PRN (07:14)
[2018-10-25] MEDS ORDERED: Pantoprazole 40 MG Tab.CR PO SCH ×2 (07:30→16:30)
[2018-10-25] MEDS: ceFAZolin 2 GM in Premix Bag 1 BAG IV SCH ×3 (07:46→22:00)
[2018-10-25] MEDS: Dextrose 5%-Lactated Ringers 1,000 ML IV SCH ×2 (07:47→20:06)
[2018-10-25] MEDS: lamoTRIgine 100 MG Tab PO SCH ×2 (08:00→21:56)
[2018-10-25] MEDS: Pregabalin 100 MG Cap PO SCH ×3 (08:00→22:10)
[2018-10-25] MEDS: SCOPOLAMINE PATCH CHECK TOP SCH (08:01)
[2018-10-25] MEDS: Venlafaxine 75 MG Cap.ER PO SCH (08:01)
[2018-10-25] MEDS ORDERED: diphenhydrAMINE 25 MG Cap PO PRN (08:02)
[2018-10-25] MEDS: Magnesium Sulfate/Water 2 GM in Premix Bag 1 BAG IV SCH ×3 (08:45→22:06)
[2018-10-25] MEDS ORDERED: Venlafaxine 75 MG Tab PO SCH (09:00)
[2018-10-25] MEDS: Acetaminophen/HYDROcodone 325-5 MG Tab PO PRN ×4 (10:26→22:49)
[2018-10-25] MEDS: Metoprolol Tartrate 25 MG Tab PO SCH (10:26)
--- NOTE | 2018-10-25 11:10 | PN ---
DATE OF SERVICE: 10/25/2018 SUBJECTIVE: She is postoperative day 1. Her pain has been managed. Her vital signs have revealed tachycardia. Her heart rate has been 120 to 128. She is on metoprolol and this was not on her med list because she has not picked it up at the pharmacy since May. Oral intake 1200. Urine output 4440. REVIEW OF SYSTEMS: Remainder of review of systems negative for any pertinent positives and negatives. OBJECTIVE: GENERAL: Savannah Damon is a 32-year-old female. Color pale. She is alert, orientated, up ambulated in the [place]. VITAL SIGNS: TPR is 95.9, 120, 18. Blood pressure is 114/70. HEENT: Negative. NECK: Supple. HEART: Regular rate and rhythm. LUNGS: Clear. ABDOMEN: Dressing dry and intact. Abdominal binder is on. G-tube is intact. EXTREMITIES: Without peripheral edema. ASSESSMENT: Open repair of incarcerated incisional hernia and incarcerated umbilical hernia with mesh and placement of Vicryl mesh for incarcerated incisional and incarcerated umbilical hernia. Date of surgery 10/24/2018. PLAN: 1. Savannah would like to be discharged in the morning, so would like to changer fixer to oral pain medication, [place] 5/325 mg 1 to 2 every 4 hours p.r.n. pain, Benadryl 25 mg p.o. q.6 hours p.r.n. itching, magnesium sulfate 2 g IV q.6. 2. Discontinue lactated Ringer's. Continue D5 LR at current rate. 3. Regular diet. 4. Metoprolol, pharmacy was called and she is on 25 mg daily, so she was started on that. She had not been taking it since May, so she was restarted and this will lower her pulse rate. She will manage her own insulin pump. 5. Good pulmonary toilet. 6. We will evaluate p.r.n. or in a.m. With her current insurance, a prescription for prior authorization was sent to [facility] and she can get her [place] 5/325 mg one q.6 hours p.r.n. pain and they are able to dispense one week's worth. She understands that she will pick this up tomorrow and this was confirmed by her nurse today. 7. We will evaluate p.r.n. or in a.m. Laurie Norby, PA-C /[id number]
[2018-10-25] MEDS: diphenhydrAMINE 50 MG/ML SDV IVPUSH SCH (15:56)
[2018-10-25] MEDS: Sodium Ferric Gluconate Cmplex 250 MG in Sodium Chloride 0.9% 100 ML IV SCH (16:46)
[2018-10-25] MEDS: Cyclobenzaprine 10 MG Tab PO PRN (20:16)
[2018-10-25] MEDS: Insulin Glargine,Human Rec. Analog 100 Units/ML 3 ML Pen SUBCUT SCH (21:56)
[2018-10-25] MEDS ORDERED: OLANZapine 5 MG Tab PO SCH (23:00)
[2018-10-26] MEDS: Magnesium Sulfate/Water 2 GM in Premix Bag 1 BAG IV SCH ×2 (03:43→08:03)
[2018-10-26] MEDS: Acetaminophen/HYDROcodone 325-5 MG Tab PO PRN ×3 (03:51→11:38)
[2018-10-26] MEDS: Cyclobenzaprine 10 MG Tab PO PRN (06:36)
[2018-10-26 07:30] VITALS: BP 114/74
[2018-10-26] MEDS: Insulin Lispro 100 Unit/ML 3 ML KwikPen SUBCUT SCH (07:41)
[2018-10-26] MEDS: Venlafaxine 75 MG Cap.ER PO SCH (08:04)
[2018-10-26] MEDS: lamoTRIgine 100 MG Tab PO SCH (08:04)
[2018-10-26] MEDS: Metoprolol Tartrate 25 MG Tab PO SCH (08:05)
[2018-10-26] MEDS: Pregabalin 100 MG Cap PO SCH (08:06)
[2018-10-26] MEDS: SCOPOLAMINE PATCH CHECK TOP SCH (08:06)
--- NOTE | 2018-10-28 08:28 | DISCH ---
FINAL DIAGNOSES: 1. Incarcerated incisional and incarcerated umbilical hernias. 2. Bariatric surgery status. 3. Peripheral neuropathy. 4. Type 1 diabetes mellitus. 5. History of depression. OPERATIVE PROCEDURE: Done on 10/24/2018, open laparotomy with repair of incarcerated incisional and incarcerated umbilical hernias with mesh and then placement of Vicryl mesh to limit recurrent adhesion formation. SUMMARY: This is a 32-year-old presenting with increasingly symptomatic incisional hernia. On the day of admission, the patient underwent a limited laparotomy. There were quite a bit in the way of adhesions taken down and was noted also to have an addition incarcerated incisional hernia and incarcerated umbilical hernia. Both of these were repaired with a polypropylene mesh. Vicryl mesh was then placed under this to limit adhesion formation between the pelvic and abdominal wall mesh and the underlying viscera. Postoperatively, no major problems were noted. Her blood sugars were somewhat high initially, but are being corrected satisfactorily at this point. She will be discharged home with a prescription for [place] 5/325 one to two tabs q.6 hours p.r.n. pain #56 and Flexeril 10 mg p.o. q.8 hours p.r.n. muscle spasms #30, refill x1. Otherwise, she can continue her usual home medications. She will be following up with Laurie Huntley at [facility] ([facility] on 11/04/2018. She is given a work release from the date of surgery until returning to work on November 25, 2018. The patient has a G-tube, which she did not use now for about 2 to 3 weeks. I think, we have another week or two where she is not requiring tube feedings to maintain satisfactory weight. When we get to that that point, consider removing the G-tube.
--- NOTE | 2018-10-28 10:39 | OR ---
DATE OF PROCEDURE: 10/24/2018 SURGEON: Regan Rendon MD PREOPERATIVE DIAGNOSIS: Incisional hernia. POSTOPERATIVE DIAGNOSES: 1. Incarcerated incisional hernia. 2. Separate incarcerated umbilical hernia. OPERATIVE PROCEDURE: Open repair of: 1. Incarcerated incisional hernia with mesh (27578, 29476). 2. Repair of incarcerated umbilical hernia with mesh (41422). ANESTHESIA: General. LAND CHECKER: Laurie Huntley PA-C. INDICATIONS FOR PROCEDURE: The patient presents with increasing symptomatic incisional hernia located in the lower midline incision. Plan is to proceed with repair of this. We will plan to proceed with an open approach, given the previous extensive abdominal surgeries and likelihood of extensive adhesions. Plan is to proceed with repair with a mesh technique. Potential risks including bleeding, infection, injury to underlying viscera, problems with mesh becoming infected or the hernia recurring were all reviewed with the patient, and she wishes to proceed. DETAILS OF PROCEDURE: The patient was taken to the operating room and placed in a supine position. After general endotracheal anesthesia was induced, a Galarza catheter was inserted, and the abdomen was prepped and draped. Her lower midline incision was then reused and carried down through the skin and subcutaneous tissue, and the dissection was continued down onto the hernia sac, which was then subsequently dissected free and excised. There were fair bit of adhesions under this, which were likely dissected free. As one dissected superiorly, the patient was noted to have a separate umbilical hernia, which also contained some incarcerated omentum within it, as had the incisional hernia. Once all the adhesions had been cleared, it became apparent at that point that we had enough clearance away from the primary hernia sites to proceed with the mesh placement. A [address] hernia patch was selected. The points where the sutures would be pulled up to secure the mesh in intraabdominal position were marked on the skin, and sutures were then placed on the polypropylene side of the mesh at those locations, these being 2-0 Vicryl stitches. Mesh was then soaked in antibiotic-containing saline solution and placed in intraperitoneal location. The superior aspect of the mesh was then secured by pulling up the sutures through the premarked locations, after incisions had been made at those locations. To limit recurrent adhesion formation between the pelvic and abdominal wall and the underlying viscera, Vicryl mesh was then placed underneath the mesh and extending up to slightly above the present level of the superior aspect of the mesh and then extending downward into the pelvic area behind the urinary bladder along the pelvic sidewalls. The remaining sutures were then pulled up, securing the mesh in general position. The mesh was then fixed with titanium tacking screws to the underlying shelf of the mesh, which protected it from exposing the titanium screws to the intraperitoneal location. Once this was in place, the area was inspected and good fixation appeared to be present at all locations. The area was irrigated with antibiotic-containing saline solution and primary fascia closure was accomplished with a #2 Vicryl stitch, subcutaneous tissue with some 3-0 Vicryl stitch, subdermal with 4-0 Vicryl stitch, and the skin with lindsay. Prior to closure, bilateral transversus abdominis plane blocks were placed and the patient was taken to the recovery room in satisfactory condition. Physician lab assistant, Laurie Huntley, played an essential role in assisting in this case, helping to position the patient, retract structures as needed, as well as suturing and cutting sutures when indicated. Her presence improved patient safety and decreased the operative time. Regan Rendon MD /[id number]
== END 2018-10-26 12:10 | disposition home or self-care (01) | DRG 355 ==
LOC: JP.SDS 06:38 → JP.SDSSCHI 06:38 → JP.MS 09:20 → EDSTATUS 10:30
PROVIDERS: ADMIT Surgery; ATTEND Surgery
PROC: 0WUF0JZ Supplement Abdominal Wall with Synthetic Substitute, Open Approach (ICD-10-PCS; principal; 2018-10-24)
PROC: 0WUF0JZ Supplement Abdominal Wall with Synthetic Substitute, Open Approach (ICD-10-PCS; 2018-10-24)
PROC: 3E0M05Z Introduction of Adhesion Barrier into Peritoneal Cavity, Open Approach (ICD-10-PCS; 2018-10-24)
DX: K43.0 Incisional hernia with obstruction, without gangrene (principal); K42.0 Umbilical hernia with obstruction, without gangrene; Z79.4 Long term (current) use of insulin; Z96.41 Presence of insulin pump (external) (internal); Z98.84 Bariatric surgery status; E10.42 Type 1 diabetes mellitus with diabetic polyneuropathy; Z93.1 Gastrostomy status; E78.5 Hyperlipidemia, unspecified; I25.10 Atherosclerotic heart disease of native coronary artery without angina pectoris; Z86.59 Personal history of other mental and behavioral disorders; K21.9 Gastro-esophageal reflux disease without esophagitis; Z87.891 Personal history of nicotine dependence; Z79.82 Long term (current) use of aspirin; Z88.8 Allergy status to other drugs, medicaments and biological substances; G43.909 Migraine, unspecified, not intractable, without status migrainosus; H52.13 Myopia, bilateral; H52.203 Unspecified astigmatism, bilateral
CPT/HCPCS: 36415; 80048; 81025; 82962; 83735; 84100; 85025; 88302; 94762; A9270-GY; C1713; C1781; C9113; J0171; J0330; J0690; J0694; J1100; J1170; J1200; J1815; J1815-GY; J2020; J2185; J2405; J2704; J2710; J2795; J2916; J3010; J3410; J3475; J3490; J7030; J7042; J7050; J7120

== ENCOUNTER 2019-12-16 08:15 | Inpatient (IN) | payer MEDICAID ==
[~2019-12-16 08:15] MED LIST changes: +Acetaminophen 500 MG Tab PO ONE; +Dextrose 5%-Lactated Ringers 1,000 ML IV SCH; +Gabapentin 300 MG Cap PO ONE; +Linezolid 600 MG in Premix Bag 1 BAG IV ONE; -Midazolam 1 MG/ML 2 ML SDV ONE; +Piperacillin/Tazobactam/Dext 3.375 GM in Premix Bag 1 BAG IV ONE; -Propofol 200 MG/20 ML SDV ONE; -fentaNYL 100 MCG/2 ML SDV ONE
[2019-12-16] MEDS ORDERED: Ketamine 50 MG in Sodium Chloride 0.9% 49.5 ML IV SCH (08:30)
[2019-12-16] MEDS ORDERED: Ketamine 500 MG/5 ML MDV IV SCH (08:30)
[2019-12-18] MEDS ORDERED: Meropenem 500 MG SDV ONE (06:55)
[2019-12-18] MEDS ORDERED: Lidocaine 1% with EPINEPHrine 1:100,000 50 ML MDV ONE (06:56)
[2019-12-18] MEDS ORDERED: Bupivacaine 0.5% 50 ML MDV ONE (06:57)
[2019-12-18] MEDS ORDERED: Acetaminophen 500 MG Tab PO ONE (10:15)
[2019-12-18] MEDS ORDERED: Gabapentin 300 MG Cap PO ONE (10:15)
[2019-12-18] MEDS ORDERED: Dextrose 5%-Lactated Ringers 1,000 ML IV SCH ×2 (10:30→16:30)
[2019-12-18] MEDS ORDERED: Dexamethasone 4 MG/ML SDV ONE (10:38)
[2019-12-18] MEDS ORDERED: Propofol 200 MG/20 ML SDV ONE (10:38)
[2019-12-18] MEDS ORDERED: Glycopyrrolate 0.2 MG/ML 5 ML MDV ONE (10:38)
[2019-12-18] MEDS ORDERED: fentaNYL 250 MCG/5 ML SDV ONE (10:38)
[2019-12-18] MEDS ORDERED: Succinylcholine 200 MG/10 ML MDV ONE (10:38)
[2019-12-18] MEDS ORDERED: Ondansetron 4 MG/2 ML SDV ONE (10:38)
[2019-12-18] MEDS ORDERED: Rocuronium 50 MG/5 ML Vial ONE ×2 (10:38→14:09)
[2019-12-18] MEDS ORDERED: Neostigmine Methylsulfate 1 MG/ML 5 ML Syringe ONE (10:38)
[2019-12-18] MEDS ORDERED: Piperacillin/Tazobactam/Dext 3.375 GM in Premix Bag 1 BAG IV ONE (11:15)
[2019-12-18] MEDS ORDERED: Piperacillin/Tazobactam 3.375 GM in Sodium Chloride 0.9% 50 ML IV ONE (11:15)
[2019-12-18] MEDS ORDERED: diphenhydrAMINE 25 MG Cap PO PRN (11:18)
[2019-12-18] MEDS ORDERED: Naloxone 0.4 MG/ML SDV IVPUSH PRN (11:18)
[2019-12-18] MEDS ORDERED: diphenhydrAMINE 50 MG/ML SDV IVPUSH PRN (11:18)
[2019-12-18] MEDS ORDERED: Ondansetron 4 MG/2 ML SDV IVPUSH PRN ×2 (11:18→16:29)
[2019-12-18] MEDS ORDERED: Ketamine 50 MG in Sodium Chloride 0.9% 49.5 ML IV SCH (11:30)
[2019-12-18] MEDS ORDERED: Ketamine 500 MG/5 ML MDV IV SCH (11:30)
[2019-12-18] MEDS: HYDROmorphone/Normal Saline 15 MG/30 ML PCA IV PRN (13:00)
[2019-12-18] MEDS: Linezolid 600 MG in Premix Bag 1 BAG IV ONE ×2 (13:53→21:23)
[2019-12-18] MEDS ORDERED: fentaNYL 100 MCG/2 ML SDV ONE (14:39)
[2019-12-18] MEDS: Bupivacaine 0.5% 50 ML MDV ONE ×2 (14:41→14:56)
[2019-12-18] MEDS ORDERED: fentaNYL 100 MCG/2 ML SDV IVPUSH ONE (15:37)
[2019-12-18] MEDS ORDERED: hydrOXYzine HCL 100 MG/2 ML SDV IM ONE (15:37)
[2019-12-18] MEDS ORDERED: Insulin Lispro 100 Unit/ML 3 ML KwikPen SUBCUT ONE (15:40)
[2019-12-18] MEDS ORDERED: 50% Dextrose in Water 50 ML Syringe IVPUSH PRN (16:31)
[2019-12-18] MEDS ORDERED: Insulin Lispro 100 Unit/ML 3 ML KwikPen SUBCUT PRN (16:31)
[2019-12-18] MEDS ORDERED: Glucagon,Human Recombinant 1 MG Vial IM PRN (16:31)
[2019-12-18] MEDS ORDERED: Glucose Gel 15 GM in 37.5 GM Tube PO PRN (16:31)
[2019-12-18] MEDS ORDERED: hydrOXYzine HCL 100 MG/2 ML SDV IM PRN (18:00)
[2019-12-18] MEDS: Insulin Lispro 100 Unit/ML 3 ML KwikPen SUBCUT SCH (18:46)
[2019-12-18] MEDS: OLANZapine 5 MG Tab PO SCH (21:27)
[2019-12-18] MEDS: Gabapentin 300 MG Cap PO SCH (21:28)
[2019-12-18] MEDS: lamoTRIgine 100 MG Tab PO SCH (21:28)
[2019-12-18] MEDS: Acetaminophen 500 MG Tab PO SCH (21:28)
[2019-12-18] MEDS ORDERED: Insulin Lispro 100 Units/ML 3 ML Vial SUBCUT ONE (21:38)
[2019-12-18] MEDS: Insulin Glargine,Human Rec. Analog 100 Units/ML 3 ML Pen SUBCUT SCH (21:44)
[2019-12-18] MEDS ORDERED: Lactated Ringers 1,000 ML IV SCH (22:15)
[2019-12-18] MEDS: ceFAZolin 2 GM in Premix Bag 1 BAG IV SCH (22:30)
[2019-12-18] MEDS: Cyclobenzaprine 10 MG Tab PO PRN (22:48)
[2019-12-19] MEDS: Acetaminophen 500 MG Tab PO SCH ×2 (04:57→09:10)
[2019-12-19] MEDS: ceFAZolin 2 GM in Premix Bag 1 BAG IV SCH ×2 (05:00→14:17)
[2019-12-19] MEDS: Cyclobenzaprine 10 MG Tab PO PRN ×3 (05:21→22:40)
[2019-12-19] MEDS: Pantoprazole 40 MG Tab.CR PO SCH (07:04)
[2019-12-19] MEDS: Insulin Lispro 100 Unit/ML 3 ML KwikPen SUBCUT SCH ×3 (07:05→18:10)
[2019-12-19] MEDS: Gabapentin 300 MG Cap PO SCH ×3 (09:09→20:20)
[2019-12-19] MEDS: Venlafaxine 75 MG Cap.ER PO SCH (09:09)
[2019-12-19] MEDS: lamoTRIgine 100 MG Tab PO SCH ×2 (09:10→20:20)
[2019-12-19] MEDS ORDERED: Hydrocortisone Sodium Succinate 100 MG/2 ML SDV IV SCH (09:30)
[2019-12-19] MEDS ORDERED: Famotidine 20 MG/2 ML SDV IV SCH (09:30)
[2019-12-19] MEDS ORDERED: diphenhydrAMINE 50 MG/ML SDV IVPUSH SCH (09:30)
[2019-12-19] MEDS ORDERED: Iron Sucrose Complex 500 MG in Sodium Chloride 0.9% 250 ML IV SCH (10:00)
[2019-12-19] MEDS ORDERED: Sodium Ferric Gluconate Cmplex 250 MG in Sodium Chloride 0.9% 100 ML IV SCH (10:30)
[2019-12-19] MEDS: Lactated Ringers 1,000 ML IV SCH (11:55)
--- NOTE | 2019-12-19 12:36 | PN ---
DATE OF SERVICE: 12/19/2019 SUBJECTIVE: Savannah is postoperative day 1. Pain has been controlled. Blood sugars were elevated initially at 415 and 411. The last blood sugar was 116. She is using her insulin pump. Afebrile, up ambulating. Oral intake 1880. Urine output via Galarza catheter 2600. REVIEW OF SYSTEMS: Remainder of review of systems negative for any pertinent positives and negatives. OBJECTIVE: GENERAL: Savannah Damon is a 34-year-old female. She is alert and oriented. Color pale. VITAL SIGNS: TPR at 0754, 97.1, 95, 16, blood pressure 108/56. HEENT: Negative. NECK: Supple. HEART: Regular rate and rhythm. LUNGS: Clear. ABDOMEN: Dressings dry and intact. Abdominal binder is on. EXTREMITIES: Without peripheral edema. ASSESSMENT: 1. Low ferritin. 2. Exploratory laparotomy with lysis of adhesions. a. Repair of recurrent incarcerated incisional hernia with mesh. b. Takedown of gastrostomy. c. Placement of Interceed mesh. POSTOPERATIVE DIAGNOSES: 1. Recurrent incarcerated incisional hernia. 2. Status gastrostomy. 3. Extensive intra-abdominal adhesions. Date of procedure 12/18/2019. Surgeon: Regan Rendon MD. PLAN: 1. Decrease IV to 100 mL per hour. 2. Discontinue Galarza catheter. 3. May shower. 4. Iron gluconate IV infusion x2. Pretreat with Solu-Medrol and Pepcid. Continue use of incentive spirometer as directed and ambulation. 5. We will evaluate p.r.n. or in a.m. Laurie Huntely PA-C /[id number]
[2019-12-19] MEDS: HYDROmorphone/Normal Saline 15 MG/30 ML PCA IV PRN (13:49)
[2019-12-19] MEDS: Acetaminophen/HYDROcodone 325-5 MG Tab PO PRN ×2 (16:13→20:18)
[2019-12-19] MEDS: OLANZapine 5 MG Tab PO SCH (20:20)
[2019-12-19] MEDS: Insulin Glargine,Human Rec. Analog 100 Units/ML 3 ML Pen SUBCUT SCH (20:26)
[2019-12-19] MEDS ORDERED: Ibuprofen 600 MG Tab PO PRN (22:46)
[2019-12-20] MEDS: Acetaminophen/HYDROcodone 325-5 MG Tab PO PRN ×2 (01:35→05:48)
[2019-12-20] MEDS: Lactated Ringers 1,000 ML IV SCH (01:48)
[2019-12-20 07:08] VITALS: BP 126/59; PULSE 86
[2019-12-20] MEDS: Insulin Lispro 100 Unit/ML 3 ML KwikPen SUBCUT SCH (07:11)
[2019-12-20] MEDS: Pantoprazole 40 MG Tab.CR PO SCH (07:13)
[2019-12-20] MEDS: Cyclobenzaprine 10 MG Tab PO PRN (07:35)
[2019-12-20] MEDS: Gabapentin 300 MG Cap PO SCH (09:05)
[2019-12-20] MEDS: Venlafaxine 75 MG Cap.ER PO SCH (09:05)
[2019-12-20] MEDS: lamoTRIgine 100 MG Tab PO SCH (09:06)
--- NOTE | 2019-12-22 10:13 | OR ---
DATE OF PROCEDURE: 12/18/2019 SURGEON: Regan Rendon MD PREOPERATIVE DIAGNOSIS: Recurrent incisional hernia. POSTOPERATIVE DIAGNOSES: 1. Recurrent incarcerated incisional hernia. 2. Status gastrostomy. 3. Extensive intraabdominal adhesions. OPERATIVE PROCEDURE: Exploratory laparotomy with lysis of adhesions and: 1. Repair of recurrent incarcerated incisional hernia with mesh (38195), (02989). 2. Takedown of gastrostomy (04521). 3. Placement of Interceed mesh to limit recurrent adhesion formation between pelvic and abdominal wall and underlying viscera (29709). ANESTHESIA: General. MEDICAL ANTHROPOLOGY DIRECTOR: Laurie Huntley PA-C INDICATIONS FOR PROCEDURE: This is a 34-year-old presenting with a recurrent incisional hernia located in the supraumbilical area. This appears to be an area just above the previously placed mesh. The plan is to proceed with open repair of this given likely quite dense adhesions. A mesh technique will be planned and potential risks including bleeding, infection, injury to underlying viscera, problems with the hernia recurring, mesh becoming infected were gone over along with the remote possibility of cardiopulmonary, septic, or hemorrhagic complications leading to , and the patient wishes to proceed. DETAILS OF PROCEDURE: The patient was taken to the operating room, placed under general endotracheal anesthetic and Galarza catheter inserted, and the abdomen prepped and draped. A midline incision from roughly 3 fingerbreadths below the xiphoid down to the umbilicus was made and carried down through the full-thickness abdominal wall. As one passed further downward through the abdominal wall, 2 distinct hernias were identified. Both of these were in the area just above the umbilicus, and in this case, the sacs were dissected back and more or less returned back to the peritoneal cavity. Fairly extensive adhesions between the abdominal wall and the underlying viscera including small bowel, transverse colon, and omentum were taken down. Some of the adhesions to the mesh inferior to that which needed to be cleared to allow overlapping of the newly placed mesh were taken down with some surgical lindsay. During the course of the dissection, the patient's previous gastrostomy was encountered, and this was sewed into the abdominal wall and was taken down with a CHINEDU stapler as well. Eventually, the underlying abdomen was cleared enough to allow placement of the mesh. Ventrio ST mesh measuring 13.8 cm x 17.8 cm was selected. It was eventually oriented with long axis in the vertical midline. At 5 cm interval surrounding its circumference, 2-0 Vicryl sutures were placed on the polypropylene side of the mesh and this was soaked in antibiotic-containing saline solution. Small stab wounds were made in the abdominal wall where sutures will be pulled up securing the mesh, thereby positioning well away from the fascial edges. The upper half of the sutures were then placed, the mesh pulled into that extent to limit adhesion formation. Interceed mesh was placed underneath the newly placed mesh and downward toward the pelvis. The Interceed mesh was then placed, remaining of the sutures were pulled up, thus fixing the mesh in a position away from the fascial edges once again. The sutures were then tied and the shelf of the mesh was then used to affix the mesh to abdominal wall with titanium tacking screws. At that point, no further problems were noted. The area was irrigated once again with antibiotic-containing saline solution. The primary fascial closure was then accomplished with a #2 Vicryl stitch, the subcutaneous tissue with 2 layers of 3-0 and 4-0 Vicryl stitch, and the skin with lindsay. Prior to closure, bilateral transversus abdominis plane blocks were placed and the incision itself was anesthetized with 1% lidocaine mixed with Marcaine and the patient taken to the recovery room in satisfactory condition. Physician application assistant, Laurie Huntley, played an essential role in assisting in this case, helping to position the patient, retract structures as needed, as well as suturing and cutting sutures when indicated. Her presence improved patient safety and decreased the operative time. Regan Rendon MD /[id number]
--- NOTE | 2019-12-22 13:18 | DISCH ---
FINAL DIAGNOSES: 1. Recurrent incarcerated incisional hernia. 2. Status gastrostomy. 3. Extensive intraabdominal adhesions. 4. Bariatric surgery status. 5. Type 1 diabetes mellitus. 6. Iron-deficiency status. 7. Hypoalbuminemia. 8. History of hyperlipidemia. OPERATIVE PROCEDURES: Done on 12/18/2019, exploratory laparotomy with lysis of adhesions. 1. Repair of recurrent incarcerated incisional hernia with mesh. 2. Takedown of gastrostomy. 3. Placement of Interceed mesh to limit recurrent adhesion formation between the pelvic and abdominal wall and underlying viscera. SUMMARY: This is a 34-year-old female presenting with recurrent incisional hernia. This appeared to be in the epigastric area at about the previous level of mesh placement. On the date of admission, the patient underwent repair of this with a mesh approach. A previous gastrostomy balloon was still attached to the abdominal wall, which was taken down to facilitate an adequate mesh placement. Postoperatively, the patient has done well. She tolerated [place] 5/325 one to two tablets every 6 hours p.r.n., and prescription was sent yesterday. Otherwise, the patient had low ferritin level and has received 2 doses of iron gluconate 250 mg while in the hospital. She will be discharged home with lifting restriction of 10 pounds for 4 weeks postoperatively. Follow up with Laurie Huntley PA-C, in [facility] on 12/29/2019.
== END 2019-12-20 09:45 | disposition home or self-care (01) | DRG 327 ==
LOC: JP.SDSSCHI 12-18 09:50 → JP.SDS 12-18 09:50 → EDSTATUS 12-18 15:15 → JP.MS 12-18 15:20
PROVIDERS: ADMIT Surgery; ATTEND Surgery
PROC: 0WUF0JZ Supplement Abdominal Wall with Synthetic Substitute, Open Approach (ICD-10-PCS; principal; 2019-12-18)
PROC: 0DP60UZ Removal of Feeding Device from Stomach, Open Approach (ICD-10-PCS; 2019-12-18)
PROC: 3E0M05Z Introduction of Adhesion Barrier into Peritoneal Cavity, Open Approach (ICD-10-PCS; 2019-12-18)
DX: K43.0 Incisional hernia with obstruction, without gangrene (principal); E46 Unspecified protein-calorie malnutrition; E78.5 Hyperlipidemia, unspecified; K66.0 Peritoneal adhesions (postprocedural) (postinfection); E10.42 Type 1 diabetes mellitus with diabetic polyneuropathy; F41.9 Anxiety disorder, unspecified; F32.9 Major depressive disorder, single episode, unspecified; G43.909 Migraine, unspecified, not intractable, without status migrainosus; K21.9 Gastro-esophageal reflux disease without esophagitis; Z93.1 Gastrostomy status; Z98.84 Bariatric surgery status; Z79.899 Other long term (current) drug therapy; Z87.891 Personal history of nicotine dependence; Z90.49 Acquired absence of other specified parts of digestive tract; Z98.51 Tubal ligation status; Z88.8 Allergy status to other drugs, medicaments and biological substances
CPT/HCPCS: 81025; 82962; 93005; 93010; 94762; A9270-GY; C1713; C1781; J0171; J0330; J0690; J1100; J1170; J1200; J1720; J1815; J1815-GY; J2020; J2185; J2405; J2543; J2704; J2710; J2795; J2916; J3010; J3410; J3490; J7050; J7120; J7121; P9047

== ENCOUNTER 2020-06-11 07:50 | Inpatient (IN) | payer MEDICAID ==
[~2020-06-11 07:50] MED LIST changes: -Acetaminophen 500 MG Tab PO ONE; +Bupivacaine 0.5% 50 ML MDV ONE; -Dextrose 5%-Lactated Ringers 1,000 ML IV SCH; -Gabapentin 300 MG Cap PO ONE; +Lidocaine 1% with EPINEPHrine 1:100,000 50 ML MDV ONE; -Linezolid 600 MG in Premix Bag 1 BAG IV ONE; +Meropenem 500 MG SDV ONE; -Piperacillin/Tazobactam/Dext 3.375 GM in Premix Bag 1 BAG IV ONE
[2020-06-11] MEDS ORDERED: Magnesium Sulfate 3 GM in Sodium Chloride 0.9% 100 ML IV SCH (08:00)
[2020-06-11] MEDS ORDERED: Magnesium Sulfate 4.5 GM in Sodium Chloride 0.9% 250 ML IV ONE (08:00)
[2020-06-11] MEDS ORDERED: Ketamine 500 MG/5 ML MDV IV SCH (08:00)
[2020-06-11] MEDS ORDERED: Ketamine 50 MG in Sodium Chloride 0.9% 49.5 ML IV SCH (08:00)
[2020-06-11] MEDS: Gabapentin 300 MG Cap PO ONE ×2 (08:09→08:37)
[2020-06-11] MEDS ORDERED: Celecoxib 200 MG Cap PO ONE (08:30)
[2020-06-11] MEDS ORDERED: Acetaminophen 500 MG Tab PO ONE (08:30)
[2020-06-11] MEDS ORDERED: cefOXitin 2 GM in Sodium Chloride 0.9% 50 ML IV ONE (08:30)
[2020-06-11] MEDS ORDERED: Dextrose 5%-Lactated Ringers 1,000 ML IV SCH ×2 (08:30→14:00)
[2020-06-11] MEDS ORDERED: Scopolamine 1.5 MG Transdermal Patch TOP ONE (08:30)
[2020-06-11] MEDS ORDERED: Albuterol/Ipratropium 3.0-0.5 MG/3 ML Neb Soln NEB ONE (08:30)
[2020-06-11] MEDS ORDERED: HYDROmorphone/Normal Saline 15 MG/30 ML PCA IV PRN (08:59)
[2020-06-11] MEDS ORDERED: Naloxone 0.4 MG/ML SDV IV PRN (09:00)
[2020-06-11] MEDS ORDERED: Propofol 200 MG/20 ML SDV ONE (09:05)
[2020-06-11] MEDS ORDERED: fentaNYL 250 MCG/5 ML SDV ONE (09:05)
[2020-06-11] MEDS ORDERED: Glycopyrrolate 0.2 MG/ML 5 ML MDV ONE (09:05)
[2020-06-11] MEDS ORDERED: Dexamethasone 4 MG/ML SDV ONE (09:05)
[2020-06-11] MEDS ORDERED: Neostigmine Methylsulfate 1 MG/ML 5 ML Syringe ONE (09:05)
[2020-06-11] MEDS ORDERED: Rocuronium 50 MG/5 ML Vial ONE ×2 (09:05→11:18)
[2020-06-11] MEDS ORDERED: Ondansetron 4 MG/2 ML SDV ONE (09:05)
[2020-06-11] MEDS ORDERED: fentaNYL 100 MCG/2 ML SDV ONE (11:12)
[2020-06-11] MEDS ORDERED: Glucagon,Human Recombinant 1 MG Vial IM PRN ×2 (12:54→14:00)
[2020-06-11] MEDS ORDERED: 50% Dextrose in Water 50 ML Syringe IVPUSH PRN ×2 (12:54→14:00)
[2020-06-11] MEDS ORDERED: Insulin Lispro 100 Unit/ML 3 ML KwikPen SUBCUT ONE (13:00)
[2020-06-11] MEDS ORDERED: Cyclobenzaprine 10 MG Tab PO PRN (13:48)
[2020-06-11] MEDS ORDERED: hydrOXYzine HCL 100 MG/2 ML SDV IM PRN (14:00)
[2020-06-11] MEDS ORDERED: Labetalol 20 MG/4 ML Syringe IVPUSH PRN (14:00)
[2020-06-11] MEDS ORDERED: Acetaminophen 500 MG Tab PO PRN (14:00)
[2020-06-11] MEDS ORDERED: Calcium Gluconate 10% 1 GM/10 ML SDV IVPUSH PRN (14:00)
[2020-06-11] MEDS ORDERED: Albuterol/Ipratropium 3.0-0.5 MG/3 ML Neb Soln INH PRN (14:00)
[2020-06-11] MEDS ORDERED: diphenhydrAMINE 50 MG/ML SDV IVPUSH PRN (14:00)
[2020-06-11] MEDS ORDERED: Ondansetron 4 MG/2 ML SDV IVPUSH PRN (14:00)
[2020-06-11] MEDS ORDERED: Metoclopramide 10 MG/2 ML SDV IVPUSH PRN (14:00)
[2020-06-11] MEDS ORDERED: Lactated Ringers 500 ML IV ONE (14:04)
[2020-06-11] MEDS: Albuterol/Ipratropium 3.0-0.5 MG/3 ML Neb Soln INH SCH ×2 (14:35→21:32)
[2020-06-11] MEDS: Lactated Ringers 1,000 ML IV SCH (14:55)
[2020-06-11] MEDS: Gabapentin 400 MG Cap PO SCH ×2 (14:56→21:27)
[2020-06-11] MEDS: methylPREDNISolone Sodium Succinate 125 MG/2 ML SDV IVPUSH SCH ×2 (14:57→16:33)
[2020-06-11] MEDS: Venlafaxine 75 MG Cap.ER PO SCH ×2 (15:00→15:03)
[2020-06-11] MEDS ORDERED: MVI, Adult with Vitamin K 10 ML, Thiamine 200 MG, Zinc/Copper/Manganese/Selenium 1 ML i... IV SCH ×4 (16:00)
[2020-06-11] MEDS ORDERED: Pantoprazole 40 MG Vial IVPUSH SCH (16:00)
[2020-06-11] MEDS: Sodium Ferric Gluconate Cmplex 250 MG in Sodium Chloride 0.9% 100 ML IV SCH (16:32)
[2020-06-11] MEDS: cefOXitin 2 GM in Sodium Chloride 0.9% 50 ML IV SCH ×2 (16:56→21:18)
[2020-06-11] MEDS: Acetaminophen 500 MG Tab PO SCH (17:00)
[2020-06-11] MEDS ORDERED: Insulin Lispro 100 Units/ML 3 ML Vial SUBCUT ONE (17:52)
[2020-06-11] MEDS ORDERED: Lidocaine 1% 20 ML MDV INJECT ONE (18:49)
[2020-06-11] MEDS: Heparin Sodium 5,000 Units/ML Vial SUBCUT SCH (20:20)
[2020-06-11] MEDS: Insulin Glargine,Human Rec. Analog 100 Units/ML 3 ML Pen SUBCUT SCH (21:26)
[2020-06-11] MEDS: Insulin Lispro 100 Unit/ML 3 ML KwikPen SUBCUT PRN (21:27)
[2020-06-11] MEDS: lamoTRIgine 100 MG Tab PO SCH (21:28)
[2020-06-11] MEDS: OLANZapine 5 MG Tab PO SCH (21:28)
[2020-06-12] MEDS: Acetaminophen 500 MG Tab PO SCH ×3 (01:17→15:40)
[2020-06-12] MEDS ORDERED: Iopamidol 612 MG/ML 50 ML SDV PO ONE (03:10)
[2020-06-12] MEDS: Lactated Ringers 1,000 ML IV SCH (03:25)
[2020-06-12] MEDS: cefOXitin 2 GM in Sodium Chloride 0.9% 50 ML IV SCH ×4 (03:27→21:00)
[2020-06-12] MEDS: Albuterol/Ipratropium 3.0-0.5 MG/3 ML Neb Soln INH SCH ×4 (07:46→20:37)
[2020-06-12] MEDS: Heparin Sodium 5,000 Units/ML Vial SUBCUT SCH ×2 (08:38→20:32)
[2020-06-12] MEDS: Gabapentin 400 MG Cap PO SCH ×3 (08:39→20:37)
[2020-06-12] MEDS: Celecoxib 200 MG Cap PO SCH ×2 (08:39→20:36)
[2020-06-12] MEDS: Venlafaxine 75 MG Cap.ER PO SCH (08:39)
[2020-06-12] MEDS: lamoTRIgine 100 MG Tab PO SCH ×2 (08:40→20:37)
[2020-06-12] MEDS: Furosemide 40 MG Tab PO SCH (08:40)
[2020-06-12] MEDS: SCOPOLAMINE PATCH CHECK TOP SCH (08:40)
[2020-06-12] MEDS ORDERED: Lactated Ringers 1,000 ML IV SCH (08:45)
[2020-06-12] MEDS: Bisacodyl 5 MG Tab PO SCH ×2 (08:49→20:36)
[2020-06-12] MEDS: Insulin Lispro 100 Unit/ML 3 ML KwikPen SUBCUT PRN (08:49)
[2020-06-12] MEDS: Docusate Sodium 100 MG Cap PO SCH ×2 (08:49→20:36)
[2020-06-12] MEDS: Insulin Lispro 100 Unit/ML 3 ML KwikPen SUBCUT SCH ×3 (08:56→18:13)
[2020-06-12] MEDS: HYDROmorphone 2 MG Tab PO PRN ×2 (14:46→21:33)
[2020-06-12] MEDS: methylPREDNISolone Sodium Succinate 125 MG/2 ML SDV IVPUSH SCH (15:20)
[2020-06-12] MEDS: Sodium Ferric Gluconate Cmplex 250 MG in Sodium Chloride 0.9% 100 ML IV SCH (15:25)
[2020-06-12] MEDS: Pantoprazole 40 MG Tab.CR PO SCH (15:40)
[2020-06-12] MEDS ORDERED: MVI, Adult with Vitamin K 10 ML, Thiamine 200 MG, Zinc/Copper/Manganese/Selenium 1 ML i... IV SCH ×4 (16:00)
[2020-06-12] MEDS: OLANZapine 5 MG Tab PO SCH (20:38)
[2020-06-12] MEDS: Insulin Glargine,Human Rec. Analog 100 Units/ML 3 ML Pen SUBCUT SCH (21:07)
[2020-06-13] MEDS: Acetaminophen 500 MG Tab PO SCH ×3 (00:39→15:33)
[2020-06-13] MEDS: HYDROmorphone 2 MG Tab PO PRN ×5 (02:50→22:13)
[2020-06-13] MEDS: Heparin Sodium 5,000 Units/ML Vial SUBCUT SCH ×2 (07:02→19:59)
[2020-06-13] MEDS: Insulin Lispro 100 Unit/ML 3 ML KwikPen SUBCUT SCH ×3 (07:05→17:14)
[2020-06-13] MEDS: Albuterol/Ipratropium 3.0-0.5 MG/3 ML Neb Soln INH SCH ×4 (07:21→21:30)
[2020-06-13] MEDS: Bisacodyl 5 MG Tab PO SCH ×2 (08:33→20:01)
[2020-06-13] MEDS: Docusate Sodium 100 MG Cap PO SCH ×2 (08:33→20:01)
[2020-06-13] MEDS ORDERED: Cyanocobalamin (Vitamin B12) 1,000 MCG/ML SDV IM ONE (09:00)
[2020-06-13] MEDS: Furosemide 40 MG Tab PO SCH (09:02)
[2020-06-13] MEDS: Gabapentin 400 MG Cap PO SCH ×3 (09:02→20:02)
[2020-06-13] MEDS: Celecoxib 200 MG Cap PO SCH ×2 (09:03→20:01)
[2020-06-13] MEDS: lamoTRIgine 100 MG Tab PO SCH ×2 (09:03→20:01)
[2020-06-13] MEDS: Venlafaxine 75 MG Cap.ER PO SCH (09:03)
[2020-06-13] MEDS: SCOPOLAMINE PATCH CHECK TOP SCH (09:03)
[2020-06-13] MEDS ORDERED: diphenhydrAMINE 25 MG Cap PO PRN (11:30)
[2020-06-13] MEDS: Pantoprazole 40 MG Tab.CR PO SCH (15:33)
--- NOTE | 2020-06-13 18:03 | PN ---
DATE OF SERVICE: 06/12/2020 The patient has been afebrile with stable vital signs. She was quite drowsy yesterday afternoon and evening and did have to have a central line placed during the evening for IV access. She appeared to be probably reacting to some extent to the magnesium. We were considering the possibility of postoperative bleeding, but her hemoglobins have been stable. This morning, she is alert, up and walking, and doing very well. We will go up to a step-3 diet today and we will adjust the insulin management to more of her baseline and get rid of the glucose in the IV. Galarza catheter will be coming out. Regan Rendon MD /[id number]
[2020-06-13] MEDS: OLANZapine 5 MG Tab PO SCH (20:02)
[2020-06-13] MEDS: Insulin Glargine,Human Rec. Analog 100 Units/ML 3 ML Pen SUBCUT SCH (22:13)
[2020-06-14] MEDS: Acetaminophen 500 MG Tab PO SCH ×2 (00:47→08:11)
[2020-06-14] MEDS: HYDROmorphone 2 MG Tab PO PRN ×2 (02:44→06:44)
[2020-06-14 07:04] VITALS: BP 103/36; PULSE 96
[2020-06-14] MEDS: Insulin Lispro 100 Unit/ML 3 ML KwikPen SUBCUT SCH (07:37)
[2020-06-14] MEDS: Heparin Sodium 5,000 Units/ML Vial SUBCUT SCH (07:37)
[2020-06-14] MEDS: Bisacodyl 5 MG Tab PO SCH (08:11)
[2020-06-14] MEDS: Celecoxib 200 MG Cap PO SCH (08:11)
[2020-06-14] MEDS: Docusate Sodium 100 MG Cap PO SCH (08:11)
[2020-06-14] MEDS: Gabapentin 400 MG Cap PO SCH (08:12)
[2020-06-14] MEDS: Furosemide 40 MG Tab PO SCH (08:12)
[2020-06-14] MEDS: lamoTRIgine 100 MG Tab PO SCH (08:12)
[2020-06-14] MEDS: Venlafaxine 75 MG Cap.ER PO SCH (08:12)
--- NOTE | 2020-06-14 09:45 | DISCH ---
ADMISSION DIAGNOSES: 1. Partial small bowel obstruction, status post Alysa-en-Y gastric bypass surgery. 2. Unspecified surgical malabsorption. 3. B12 deficiency. 4. Controlled type 1 diabetes mellitus with diabetic polyneuropathy. 5. Episode of recurrent major depression disorder. 6. Tobacco abuse. DISCHARGE DIAGNOSES: Exploratory laparotomy with lysis of adhesions. 1. Small-bowel resection. 2. Secondary enteroenterostomy to re-establish Alysa-en-Y small bowel anatomy. 3. Excision of peritoneal implant (12 cm). 4. Removal of abnormal portion of intraperitoneal mesh. 5. Placement of mesh, Interceed x2. POSTOPERATIVE DIAGNOSES: 1. Partial small bowel obstruction at the jejunojejunostomy. 2. Peritoneal implant overlying abdominal wall omentum adjacent to small bowel. 3. Chronic sigmoid volvulus. 4. Segment of intraperitoneal mesh at risk of infection. Date of procedure, 06/11/2020. Surgeon: Regan Rendon MD. HISTORY: Savannah Damon is a 34-year-old female with increasing symptoms of postprandial abdominal pain. After preoperative evaluation and discussion of possible risks and possible complications, she wished to proceed with surgical procedure. HOSPITAL COURSE: Savannah had her surgery on 06/11/2020. She had no operative complications. On postoperative day 1, Galarza was discontinued, IV was decreased to 100 mL per hour. She was started on a step 3 gastric bypass diet. Insulin was adjusted to sliding scale, but she has an insulin pump, so adjusted her own insulin. She was started on bowel stimulation. On 06/13/2020, IV was saline locked, started on oral pain medication, and due to sleepiness, gabapentin, Zyprexa, and Lamictal were given not with her Dilaudid pain medication. On postoperative day 3, vital signs were stable, up ambulating. Oral intake adequate at 3540. Urine output was 2400. Pain was controlled with oral Dilaudid. Vital signs stable, and she is able to be discharged to home. PHYSICAL EXAMINATION: GENERAL: Savannah Damon is a pleasant 34-year-old female. VITAL SIGNS: Height is 5 feet 4 inches, weight is 214 pounds. BMI is 36.8. TPR 95.5, 96, 16. Blood pressure 103/36. HEENT: Negative. NECK: Supple. HEART: Regular rate and rhythm. LUNGS: Clear. ABDOMEN: Aquacel dressing is on. Abdominal binder is on. EXTREMITIES: Without peripheral edema. DISPOSITION: Discharged to home. CONDITION: Stable and improving. FOLLOWUP APPOINTMENT: With Laurie Huntley PA-C, 06/21/2020 at 11 a.m. HOME MEDICATIONS: Dilaudid 2 mg p.o. q.4 hours p.r.n. pain, #42. She is to resume her home medication of furosemide 40 mg daily, Zofran ODT 4 mg every 4 hours p.r.n. nausea, diltiazem 24 hour at 180 mg p.o. daily, MiraLAX 17 g p.o. daily, Lamictal 200 mg p.o. b.i.d., clonazepam 1 tablet p.o. t.i.d. p.r.n., vitamin B complex 1 daily, vitamin A 25,000 units p.o. daily, venlafaxine ER 150 mg p.o. daily, olanzapine 10 mg p.o. q.p.m., multivitamin 1 chewable b.i.d., Gaviscon 1 p.o. q.4 hours p.r.n., NovoLog 5 to 10 units subcu t.i.d. with meals, and Lantus 5 units q. bedtime. Discontinue ibuprofen. Neurontin 1200 mg p.o. t.i.d., folic acid 1 mg p.o. daily, ferrous fumarate 324 mg p.o. daily. Vitamin D 50,000 units p.o. Sunday, Sunday, Sunday. Vitamin B12 1000 mcg sublingual daily, vitamin D3 1000 units p.o. daily. Donie 1 tablet q.6 hours p.r.n., discontinue while taking the Dilaudid. Tylenol Extra Strength 1000 mg p.o. q.8 hours. DIET: Regular consistent carb diet as tolerated. FOLLOWUP APPOINTMENT: With Laurie Huntley PA-C, 06/21/2020 at 11 a.m. ACTIVITY: No lifting greater than 10 pounds for 2 weeks. Driving, no driving for 1 week and within 6 hours of taking Dilaudid. DISCHARGE INSTRUCTIONS: Shower/bathing: May shower. Wound incision care: Keep operative site clean and dry. Take off Aquacel dressing on , 06/17/2020. Wear abdominal binder for 2 weeks and then as tolerated. Notify provider if any fever, increased pain, swelling, redness, drainage, nausea, or vomiting. SPECIAL INSTRUCTION: Use incentive spirometer 10 times every hour while awake for 1 week. /[id number]
[2020-06-14] MEDS: Albuterol/Ipratropium 3.0-0.5 MG/3 ML Neb Soln INH SCH (10:39)
--- NOTE | 2020-06-14 11:00 | CR ---
CHEST: Portable 06/11/2020 CLINICAL HISTORY:Central line placement COMPARISON:2007 FINDINGS: Patient is a right subclavian catheter. The tip is curled in the superior vena cava. The heart size, pulmonary vascularity and hilar structures are normal. No infiltrate effusion or pneumothorax is seen. IMPRESSION: No acute cardiopulmonary process Central venous catheter is curled in the superior vena cava
--- NOTE | 2020-06-14 11:09 | CR ---
UGI Limited HISTORY: Postbariatric surgery FINDINGS: Patient swallowed water-soluble contrast. Upright views of the abdomen show no evidence of extravasation or obstruction. There is moderate retained stool with some liquid stool in the right colon. IMPRESSION: Status post bariatric surgery No extravasation or obstruction seen
--- NOTE | 2020-06-14 13:06 | PN ---
DATE OF SERVICE: 06/13/2020 The patient has been afebrile with stable vital signs. No major problems were noted overnight other than she was quite sleepy and somewhat disoriented when she received the gabapentin, Zyprexa, Lamictal, and Dilaudid all at the same time. We will try to separate and otherwise she will likely be ready for discharge home tomorrow. Regan Rendon MD /[id number]
--- NOTE | 2020-06-26 09:25 | OR ---
DATE OF PROCEDURE: 06/11/2020 SURGEON: Regan eRndon MD PREOPERATIVE DIAGNOSIS: Indication for central venous access. POSTOPERATIVE DIAGNOSIS: Indication for central venous access. OPERATIVE PROCEDURE: Insertion of triple lumen central venous catheter via right subclavian vein approach (25776). ANESTHESIA: Local. INDICATION FOR PROCEDURE: See progress note. DETAILS OF PROCEDURE: The patient was placed in a supine position in the hospital bed. The upper chest and neck areas were prepped and draped and the right subclavian area was anesthetized with 1% lidocaine. The subclavian vein was then cannulated. A guidewire was passed and over this a triple-lumen catheter was positioned. Good in and outflow was noted through the port and the ports were flushed with heparinized saline. The catheter was sutured to skin with some 3-0 silk stitch and a dressing applied. Subsequent x-ray showed good catheter position without complications. Regan Rendon MD /[id number]
--- NOTE | 2020-06-26 09:29 | PN ---
DATE OF SERVICE: 06/11/2020 The patient is status post a significant open abdominal procedure earlier today. At this point, she is having problems with IV access. Anesthesia placed an IV in the right arm, which is now infiltrated. The patient is somewhat tachycardic and intermittently hypertensive. Given this, a central line will be placed to establish adequate IV access. Potential risks of the procedure including bleeding, infection, pneumohemothorax, or vascular injury were reviewed with the patient and she wishes to proceed. Regan Rendon MD /[id number]
--- NOTE | 2020-06-27 12:22 | OR ---
DATE OF PROCEDURE: 06/11/2020 SURGEON: Regan Rendon MD PREOPERATIVE DIAGNOSIS: Partial small bowel obstruction. POSTOPERATIVE DIAGNOSES: 1. Partial small bowel obstruction at jejunojejunostomy. 2. Peritoneal implant underlying anterior abdominal wall and extending onto adjacent small bowel. 3. Chronic sigmoid colon volvulus. 4. Segment of intraperitoneal mesh at risk of infection. OPERATIVE PROCEDURES: Exploratory laparotomy with lysis of adhesions and: 1. Small bowel resection (40322). 2. Secondary enteroenterostomy to reestablish small bowel Alysa-en-Y anatomy (95279). 3. Excision of peritoneal implant (12 cm) underlying the abdominal wall, extending onto the small bowel (02567). 4. Rectosigmoid colon resection with coloproctostomy (69789). 5. Removal of a portion of intraperitoneal mesh (77372). 6. Placement of Interceed mesh x2 (84572). ANESTHESIA: General. TOPPER PRESS OPERATOR: Laurie Huntley PA-C INDICATIONS FOR PROCEDURE: This is a 34-year-old presenting with a picture of partial small bowel obstruction. The plan is to proceed with exploratory laparotomy with lysis of adhesions and/or small bowel resection as indicated. Potential risks of procedure including bleeding, infection, injury to underlying viscera, problems with leaks from the various GI tract closures that might be undertaken, possible recurrence or persistence of the pain and symptoms over time were all gone over along with remote possibility of cardiopulmonary, septic, or hemorrhagic complications leading to , and the patient wishes to proceed. DETAILS OF PROCEDURE: The patient was taken to the operative room, and after general endotracheal anesthesia was induced, a Galarza catheter was inserted, and the abdomen was prepped and draped. A midline incision from the level of the umbilicus towards the xiphoid was made and carried down through the full-thickness of abdominal wall. Upon entering the peritoneal cavity, extensive adhesions were undertaken. On general exploration, the patient was noted to have what appeared to be partial obstruction at jejunojejunostomy with that area being stenotic particularly at the point where the small bowel at the Alysa limb entered the jejunojejunostomy. There was also an elongated peritoneal implant measuring 12 cm beginning in the anterior abdominal wall, which then draped downward across the central abdomen contributing to some of the bowel obstruction as well. The sigmoid colon was noted to be strikingly dilated and rotated on itself with an edematous thickened crease at the base of the mesentery consistent with a chronic volvulus, and finally, the edge of the intraperitoneal mesh, which was present was free of any soft tissue encasement and felt to be at significant risk for wound infection if left in place and subsequently resected. At this point, the small bowel at the jejunojejunostomy was resected with the 3 components being divided with CHINEDU lindsay as was the underlying mesentery. Small bowel continuity was then re-established with additional anastomosis between what had been the distal-most true biliopancreatic limb to the proximal most common limb. This was a [id number] enteroenterostomy with 60 mm Endo-CHINEDU stapler internally and the common limb closed transversely with same stapler. Angles were anastomosed. Mesenteric defect reinforced with some 3-0 Vicryl stitch. GI tract continuity was established with the Alysa limb then being anastomosed roughly 20 cm distal to the first anastomosis with same sequence of lindsay and closure of the mesentery. During the portion of the dissection, the peritoneal implant was excised as well. The rectosigmoid was then divided proximally and distally, and the coloproctostomy was accomplished with 2 internal firings of the Endo-CHINEDU puga load. Common opening was closed transversely with purple loads and the angles anastomosed. The mesenteric defect was reinforced with some 3-0 Vicryl stitch. Edges of the peritoneal mesh that were felt to be at risk were at this point excised. Prior to that, the mesh had been walled off with antibiotic-containing gauze, and after completion of the bowel resections as noted above, new gowns and gloves were obtained by the participants in the surgery, and that area irrigated with meropenem and Zyvox-containing saline solution. After excision of the exposed intraperitoneal mesh, the abdomen was then once again irrigated with the meropenem and Zyvox-containing saline solution. No further problems were noted at this point. No drains were felt to be necessary. Initially, 2 Interceed meshes were placed underneath the incision extending down into the pelvis to limit recurrent adhesion formation. The mesh was then reapproximated with #1 Prolene stitch over which the primary fascial closure was accomplished with a #2 Vicryl stitch. Subcutaneous tissue was approximated with some 3-0 and 4-0 Vicryl stitch deep in the skin with lindsay. Prior to closure, bilateral transversus abdominis plane blocks were then placed, and the incision was then anesthetized with 1% lidocaine mixed with Marcaine as well, and the patient taken to the recovery room in satisfactory condition. There were no evident complications. Physician logistics assistant, Laurie Huntley PA-C, played an essential role in assisting in this case, helping to position the patient and retract structures as needed as well as suturing and cutting sutures when indicated. Her presence improved patient safety and decreased the operative time. Regan Rendon MD /[id number]
== END 2020-06-14 10:10 | disposition home or self-care (01) | DRG 326 ==
LOC: JP.MS 07:50 → JP.SDS 07:51 → EEVIPCON 08:15 → EDSTATUS 08:15 → JP.MS 12:50
PROVIDERS: ADMIT Surgery; ATTEND Surgery
PROC: 0D160ZA Bypass Stomach to Jejunum, Open Approach (ICD-10-PCS; principal; 2020-06-11)
PROC: 0DB80ZZ Excision of Small Intestine, Open Approach (ICD-10-PCS; 2020-06-11)
PROC: 0D1N0ZP Bypass Sigmoid Colon to Rectum, Open Approach (ICD-10-PCS; 2020-06-11)
PROC: 0WPF0JZ Removal of Synthetic Substitute from Abdominal Wall, Open Approach (ICD-10-PCS; 2020-06-11)
PROC: 3E0M05Z Introduction of Adhesion Barrier into Peritoneal Cavity, Open Approach (ICD-10-PCS; 2020-06-11)
PROC: 02HV33Z Insertion of Infusion Device into Superior Vena Cava, Percutaneous Approach (ICD-10-PCS; 2020-06-11)
DX: K95.89 Other complications of other bariatric procedure (principal); K56.2 Volvulus; K56.600 Partial intestinal obstruction, unspecified as to cause; K90.9 Intestinal malabsorption, unspecified; F33.9 Major depressive disorder, recurrent, unspecified; Y83.8 Other surgical procedures as the cause of abnormal reaction of the patient, or of later complication, without mention of misadventure at the time of the procedure; E53.8 Deficiency of other specified B group vitamins; E10.42 Type 1 diabetes mellitus with diabetic polyneuropathy; D64.9 Anemia, unspecified; F41.9 Anxiety disorder, unspecified; K21.9 Gastro-esophageal reflux disease without esophagitis; E78.5 Hyperlipidemia, unspecified; G43.909 Migraine, unspecified, not intractable, without status migrainosus; E66.9 Obesity, unspecified; Z98.84 Bariatric surgery status; Z90.49 Acquired absence of other specified parts of digestive tract; Z79.4 Long term (current) use of insulin; Z79.82 Long term (current) use of aspirin; Z79.899 Other long term (current) drug therapy; Z88.8 Allergy status to other drugs, medicaments and biological substances; Z87.891 Personal history of nicotine dependence; Z20.822 Contact with and (suspected) exposure to COVID-19; Z68.36 Body mass index [BMI] 36.0-36.9, adult
CPT/HCPCS: 36415; 71045; 71045-26; 74240; 74240-26; 80053; 81025; 82728; 82962; 83735; 83880; 84100; 85025; 85027; 86850; 86900; 86901; 86902; 86920; 86922; 86970; 88300; 88305; 88307; 94640; 94762; A9270-GY; C9113; J0171; J0694; J1100; J1170; J1642; J1644; J1815; J1815-GY; J2020; J2185; J2405; J2704; J2710; J2795; J2916; J2930; J3010; J3411; J3420; J3475; J3490; J7050; J7120; J7121; J7620-GY; Q9967; U0002

== ENCOUNTER 2020-07-08 12:35 | Inpatient (IN) | payer MEDICAID ==
[2020-07-08] MEDS ORDERED: Acetaminophen 650 MG Supp RECTAL PRN (12:55)
[2020-07-08] MEDS ORDERED: Naloxone 0.4 MG/ML SDV IV PRN (13:00)
--- NOTE | 2020-07-08 14:13 | PCM.HP.2 ---
H&P History of Present Illness - General Date of Service: 07/08/20 Admit Problem/Dx: Admission Diagnosis/Problem Admission Diagnosis/Problem Small bowel obstruction Source of Information: Patient History Limitations: Reports: No Limitations - History of Present Illness Initial Comments - Free Text/Narative: Savnanah states she developed abdominal pain in her left upper quadrant and periumbilical area about 2 days ago. Pain is a sharp achy pain without radiation. BMs are normal 1 - 2 daily. Eating and drinking causes no change in her pain. Savannah had an: Exploratory Laparotomy with lysis of adhesions, small bowel resection, secondary enteroenterostomy to re-establish RNY small bowel anatomy, Excision of peritoneal implant Removal of abnormal portion of intraperitoneal mesh and placement of interceed mesh X 2. Date of Surgery: 06/11/2020 - Regan Rendon MD Onset of Symptoms: Reports: Gradual Duration of Symptoms: Reports: Day(s): (2) Location: Reports: Abdomen Quality: Reports: Ache, Sharp Severity: Moderate Improves with: Reports: None Worsens with: Reports: None Associated Symptoms: Reports: No Other Symptoms - Related Data Allergies/Adverse Reactions: Allergies Allergy/AdvReac Type Severity Reaction Status Date / Time iron sucrose complex Allergy Severe Shortness Verified 06/09/20 09:01 [From Venofer] of Breath sucralfate [From Carafate] AdvReac Dizziness Verified 06/09/20 09:01 Home Medications: Home Meds Insulin Aspart [NovoLOG] 5 - 10 units SQ TIDMEALS 07/10/13 [History] Multivitamin with Minerals [Multiple Vitamin] 1 tab PO BID 07/10/13 [History] Insulin Glarg,Human.Rec.Analog [Lantus] 5 - 10 units SQ BEDTIME 01/27/14 [History] Mag/Aluminum/Sod Bicarb/Alginc [Gaviscon 80-14.2 MG] 1 each PO Q4H PRN 04/21/16 [History] Cholecalciferol (Vitamin D3) [Vitamin D3] 1,000 unit PO DAILY 05/23/17 [History] Vitamin B Complex [B Complex] 1 each PO DAILY 10/22/18 [History] lamoTRIgine [Lamictal] 200 mg PO BID 10/22/18 [History] Venlafaxine HCl [Venlafaxine ER] 150 mg PO DAILY 10/24/18 [History] OLANZapine [Olanzapine] 10 mg PO QPM 10/25/18 [History] polyethylene glycoL 3350 [Miralax] 17 gm PO DAILY 10/26/18 [History] Cyanocobalamin (Vitamin B-12) [B-12] 1,000 mcg SL DAILY 12/12/19 [History] Ergocalciferol (Vitamin D2) [Vitamin D2] 50,000 units PO MOWEFR 12/12/19 [History] Ferrous Fumarate 324 mg PO DAILY 12/12/19 [History] Folic Acid 1 mg PO DAILY 12/12/19 [History] Ondansetron [Zofran ODT] 4 mg PO Q4H PRN 12/12/19 [History] Vitamin A Palmitate [Vitamin A] 25,000 units PO DAILY 12/12/19 [History] Gabapentin [Neurontin] 1,200 mg PO TID 12/18/19 [History] Furosemide 40 mg PO DAILY 06/11/20 [History] clonazePAM [Clonazepam] 1 tab PO TID PRN 06/11/20 [History] dilTIAZem HCL [Diltiazem 24Hr ER (Cd)] 180 mg PO BEDTIME 06/11/20 [History] Acetaminophen [Tylenol Extra Strength] 1,000 mg PO Q8H tablet 06/14/20 [Rx] Past Medical History HEENT History: Reports: Allergic Rhinitis, Sinusitis Other HEENT History: allergies Cardiovascular History: Reports: High Cholesterol, Other (See Below) Other Cardiovascular History: 50 percent blockage on Angiogram jan 2018 Respiratory History: Reports: Intubation, Previous Gastrointestinal History: Reports: Bowel Obstruction, Chronic Constipation, GERD, Other (See Below) Other Gastrointestinal History: abdominal hernia; ulcer Genitourinary History: Reports: None 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: Endometriosis, , Spontaneous Musculoskeletal History: Reports: Fibromyalgia Neurological History: Reports: Headaches, Chronic Psychiatric History: Reports: Anxiety, Depression Endocrine/Metabolic History: Reports: Diabetes, Type I, IDDM, Obesity/BMI 30+ Hematologic History: Reports: Anemia, B12 Deficiency, Blood Transfusion(s), Iron Deficiency Immunologic History: Reports: None Oncologic (Cancer) History: Reports: None Dermatologic History: Reports: None - Infectious Disease History Infectious Disease History: Reports: Chicken Pox Other Infectious Disease History: facial MRSA infection 4 yrs ago - Past Surgical History Head Surgeries/Procedures: Reports: None HEENT Surgical History: Reports: None Cardiovascular Surgical History: Reports: None Respiratory Surgical History: Reports: None GI Surgical History: Reports: Bariatric Procedure, Cholecystectomy, Colonoscopy, EGD, Esophageal Dilatation, Hernia, Abdominal, Hernia Repair/Other, Other (See Below) Other GI Surgeries/Procedures: exploratory lap; PEG tube. RNY 2008, revision 2018 Female Surgical History: Reports: Tubal Ligation Endocrine Surgical History: Reports: None Neurological Surgical History: Reports: None Musculoskeletal Surgical History: Reports: None Other Musculoskeletal Surgeries/Procedures:: muscle tightening in stomach and abdominoplasty Oncologic Surgical History: Reports: None Dermatological Surgical History: Reports: None Social & Family History - Family History Family Medical History: No Pertinent Family History Cardiac: Reports: Blood Clots/VTE/DVT, SC, Pacemaker GI: Reports: GERD Musculoskeletal: Reports: Arthritis, Osteoarthritis Psychiatric: Reports: Anxiety, Depression Endocrine/Metabolic: Reports: Diabetes, type II Hematologic: Reports: None Immunologic: Reports: SLE Oncologic: Reports: Lung - Tobacco Use Tobacco Use Status *Q: Current Some Day Tobacco User Years of Tobacco use: 10 Packs/Tins Daily: 1 Used Tobacco, but Quit: Yes Month/Year Tobacco Last Used: 2018 Second Hand Smoke Exposure: No - Caffeine Use Caffeine Use: Reports: Coffee Caffeine Use Comment: 6 cups/daily - Recreational Drug Use Recreational Drug Use: No - Living Situation & Occupation Occupation: Employed H&P Review of Systems - Review of Systems: Review Of Systems: See Below General: Reports: ROS unobtainable, Weakness, Fatigue, Decreased Appetite HEENT: Reports: No Symptoms Pulmonary: Reports: No Symptoms Cardiovascular: Reports: No Symptoms Gastrointestinal: Reports: Abdominal Pain (see chief complaint) Genitourinary: Reports: No Symptoms Musculoskeletal: Reports: No Symptoms Skin: Reports: No Symptoms Psychiatric: Reports: No Symptoms Neurological: Reports: No Symptoms Hematologic/Lymphatic: Reports: No Symptoms Immunologic: Reports: No Symptoms Exam - Exam Exam: See Below - Vital Signs Vital Signs: Last Vital Signs Temp 97.1 F 07/08/20 12:50 Pulse 81 07/08/20 12:50 Resp 18 07/08/20 12:50 BP 115/77 07/08/20 12:50 Pulse Ox 97 07/08/20 12:50 Weight: 213 lb - Exam Quality Assessment: DVT Prophylaxis General: Alert, Oriented, Cooperative, Mild Distress HEENT: PERRLA, Conjunctiva Clear Neck: Supple, Trachea Midline Lungs: Clear to Auscultation, Normal Respiratory Effort Cardiovascular: Regular Rate, Regular Rhythm GI/Abdominal Exam: Soft (Tenderness in the mid epigastric area, LUQ and left lower quadrant. ), Other ([place] area to the left of the umbilicus that patient states is how her sepsis started one year ago. ) (Female) Exam: Deferred Rectal (Female) Exam: Deferred Back Exam: Normal Inspection, Full Range of Motion Extremities: Normal Inspection, Normal Range of Motion, Non-Tender, No Pedal Edema, Normal Capillary Refill Skin: Warm, Dry, Intact Neurological: Cranial Nerves Intact, Reflexes Equal Bilateral Neuro Extensive - Mental Status: Alert, Oriented x3, Normal Mood/Affect, Normal Cognition, Memory Intact Neuro Extensive - Motor, Sensory, Reflexes: CN II-XII Intact, Normal Gait, Normal Reflexes Psychiatric: Alert, Normal Affect, Normal Mood - Patient Data Lab Results Last 24 hrs: Laboratory Results - last 24 hr 07/08/20 07/08/20 07/08/20 Range/Units 13:23 13:23 13:23 WBC 7.8 (4.5-11.0) K/uL RBC 3.81 (3.30-5.50) M/uL Hgb 11.3 L (12.0-15.0) g/dL Hct 36.8 (36.0-48.0) % MCV 97 (80-98) fL MCH 30 (27-31) pg MCHC 31 L (32-36) % Plt Count 387 (150-400) K/uL Neut % (Auto) 63 (36-66) % Lymph % (Auto) 27 (24-44) % [place] % (Auto) 8 H (2-6) % Eos % (Auto) 1 L (2-4) % Baso % (Auto) 1 (0-1) % Sodium 140 (140-148) mmol/L Potassium 4.5 (3.6-5.2) mmol/L Chloride 105 (100-108) mmol/L Carbon Dioxide 29 (21-32) mmol/L Anion Gap 6.2 (5.0-14.0) mmol/L BUN 11 (7-18) mg/dL Creatinine 0.7 (0.6-1.0) mg/dL Est Cr Clr Drug Dosing 96.86 mL/min Estimated GFR (MDRD) > 60 (>60) Glucose 82 (74-106) mg/dL Lactic Acid 1.6 (0.4-2.0) mmol/L Calcium 8.7 (8.5-10.1) mg/dL Phosphorus 3.7 (2.5-4.9) mg/dL Magnesium 2.0 (1.8-2.4) mg/dL Total Bilirubin 0.2 (0.2-1.0) mg/dL AST 59 H D (15-37) U/L ALT 54 D (12-78) U/L Alkaline Phosphatase 165 H (46-116) U/L Total Protein 5.6 L (6.4-8.2) g/dL Albumin 2.4 L (3.4-5.0) g/dL Globulin 3.2 (2.3-3.5) g/dL Albumin/Globulin Ratio 0.8 L (1.2-2.2) Result Diagrams: 07/08/20 13:23 07/08/20 13:23 Sepsis Event Note - Focused Exam Vital Signs: Vital Signs Temp Pulse Resp BP Pulse Ox 07/08/20 12:50 97.1 F 81 18 115/77 97 Problem List Initiated/Reviewed/Updated: Yes Orders Last 24hrs: Active Orders 24 hr Category Date Time Status Patient Status [ADT] Routine ADT 07/08/20 11:25 Active Activity as Tolerated [RC] .Routine Care 07/08/20 13:05 Active Blood Glucose Check, Bedside [RC] QID Care 07/08/20 12:55 Active Intake and Output [RC] ASDIRECTED Care 07/08/20 12:55 Active Nurse Communication: Isolation [RC] ASDIRECTED Care 07/08/20 14:01 Active Vital Signs [RC] Q8H Care 07/08/20 12:55 Active Bariatric Diet [DIET] Diet 07/08/20 Dinner Active Nothing per Oral After Midnight Diet [DIET] Diet 07/09/20 Breakfast Active UGI w Small Bowel wo Air [CR] Routine Exams 07/09/20 04:00 Ordered CORONAVIRUS COVID-19 LUZ [MOLEC] Stat Lab 07/08/20 13:23 Received CORONAVIRUS COVID-19, LUZ Stat Lab 07/08/20 12:55 Ordered Acetaminophen [TylenoL] Med 07/08/20 12:54 Active 650 mg PO Q4H PRN Acetaminophen [Tylenol] Med 07/08/20 12:55 Active 650 mg RECTAL Q4H PRN ClonazePAM [KlonoPIN] Med 07/08/20 14:01 Ordered 0.5 mg PO TID PRN Cyanocobalamin (Vitamin B12) [Vitamin B12] Med 07/09/20 09:00 Ordered 1,000 mcg SL DAILY Diltiazem [Cardizem CD] Med 07/08/20 21:00 Ordered 180 mg PO BEDTIME Ergocalciferol (Vitamin D2) [Vitamin D2] Med 07/09/20 14:01 Ordered 50,000 units PO MOWEFR Ferrous Fumarate [Ferrous Fumarate] Med 07/09/20 09:00 Ordered 324 mg PO DAILY Folic Acid Med 07/09/20 09:00 Ordered 1 mg PO DAILY Furosemide [Lasix] Med 07/09/20 09:00 Ordered 40 mg PO DAILY Gabapentin [Neurontin] Med 07/08/20 21:00 Ordered 1,200 mg PO TID HYDROmorphone/Normal Saline [Dilaudid APPLICATIONS SYSTEMS ENGINEER 15 MG in NS Med 07/08/20 12:57 Active 30 ML] 0 mg IV ASDIRECTED PRN Insulin Glarg,Human.Rec.Analog [LantUS Solostar] Med 07/08/20 21:00 Active 13 units SUBCUT BEDTIME Insulin Lispro [HumaLOG] Med 07/08/20 12:57 Active 0 unit SUBCUT ASDIRECTED PRN Lactated Ringers [Ringers, Lactated] 1,000 ml Med 07/08/20 13:00 Active IV ASDIRECTED Linezolid [Zyvox] 600 mg Med 07/08/20 14:00 Ordered Premix Bag 1 bag IV Q12H Mag/Aluminum/Sod Bicarb/Alginc [Gaviscon 80-14.2 MG] Med 07/08/20 14:01 Ordered 1 each PO Q4H PRN Meropenem [Merrem] 1 gm Med 07/08/20 14:00 Ordered Sodium Chloride 0.9% [Normal Saline] 100 ml IV Q8H Multivitamin with Minerals [Multiple Vitamin] Med 07/08/20 21:00 Ordered 1 tab PO BID Naloxone [Narcan] Med 07/08/20 13:00 Active 0.1 mg IV ASDIRECTED PRN OLANZapine [Olanzapine] Med 07/08/20 17:00 Ordered 10 mg PO QPM Ondansetron [Zofran ODT] Med 07/08/20 12:55 Active 4 mg PO Q4H PRN Pantoprazole [ProTONIX IV] Med 07/08/20 14:00 Active 40 mg IV Q24H Venlafaxine HCl [Venlafaxine ER] Med 07/09/20 09:00 Ordered 150 mg PO DAILY Vitamin A Palmitate [Vitamin A] Med 07/09/20 09:00 Ordered 25,000 units PO DAILY Vitamin B Complex Med 07/09/20 09:00 Ordered 1 each PO DAILY lamoTRIgine [Lamictal] Med 07/08/20 21:00 Ordered 200 mg PO BID polyethylene glycoL 3350 [MiraLAX] Med 07/09/20 09:00 Ordered 17 gm PO DAILY Isolation [COMM] Routine Oth 07/08/20 14:01 Ordered Sequential Compression Device [OM.PC] Routine Oth 07/08/20 12:55 Ordered Medication Orders Acetaminophen (Tylenol) 650 mg PO Q4H PRN PRN Reason: ANALGESIA/FEVER Acetaminophen (Tylenol) 650 mg RECTAL Q4H PRN PRN Reason: ANALGESIA/FEVER Clonazepam (Klonopin) 0.5 mg PO TID PRN PRN Reason: Anxiety Cyanocobalamin (Vitamin B12) 1,000 mcg SL DAILY [facility] Diltiazem HCl (Cardizem Cd) 180 mg PO BEDTIME [facility] Folic Acid (Folic Acid) 1 mg PO DAILY [facility] Furosemide (Lasix) 40 mg PO DAILY [facility] Gabapentin (Neurontin) 1,200 mg PO TID [facility] Hydromorphone HCl (Dilaudid Livestock Speculator 15 Mg In Ns 30 Ml) 0 mg IV ASDIRECTED PRN; Protocol PRN Reason: APPLICATIONS SYSTEMS ENGINEER PAIN CONTROL Lactated Ringer's (Ringers, Lactated) 1,000 mls @ 125 mls/hr IV ASDIRECTED [facility] Meropenem 1 gm/ Sodium (Chloride) 100 mls @ 200 mls/hr IV Q8H [facility] Linezolid 600 mg/ Premix 300 mls @ 300 mls/hr IV Q12H [facility] Insulin Glargine (Lantus Solostar) 13 units SUBCUT BEDTIME [facility] Insulin Human Lispro (Humalog) 0 unit SUBCUT ASDIRECTED PRN PRN Reason: Blood Glucose Naloxone HCl (Narcan) 0.1 mg IV ASDIRECTED PRN PRN Reason: decreased respiratory rate Non-Formulary Medication (Ergocalciferol (Vitamin D2) [Vitamin D2]) 50,000 units PO MOWEFR [facility] Non-Formulary Medication (Ferrous Fumarate [Ferrous Fumarate]) 324 mg PO DAILY [facility] Non-Formulary Medication (Lamotrigine [Lamictal]) 200 mg PO BID [facility] Non-Formulary Medication (Mag/Aluminum/Sod Bicarb/Alginc [Gaviscon 80-14.2 Mg]) 1 each PO Q4H PRN PRN Reason: Heartburn Non-Formulary Medication (Multivitamin With Minerals [Multiple Vitamin]) 1 tab PO BID [facility] Non-Formulary Medication (Olanzapine [Olanzapine]) 10 mg PO QPM [facility] Non-Formulary Medication (Venlafaxine Hcl [Venlafaxine Er]) 150 mg PO DAILY [facility] Non-Formulary Medication (Vitamin A Palmitate [Vitamin A]) 25,000 units PO DAILY [facility] Ondansetron HCl (Zofran Odt) 4 mg PO Q4H PRN PRN Reason: Nausea Pantoprazole Sodium (Protonix Iv) 40 mg IV Q24H [facility] Polyethylene Glycol (Miralax) 17 gm PO DAILY [facility] Vitamin B Complex (Vitamin B Complex) 1 each PO DAILY [facility] Assessment/Plan Comment:: Assessment: 1. Partial Small Bowel Obstruction CT Scan: Nonspecific distention of the terminal ilium with intraluminal ingested food contents or fecal matter which could indicate ilieal obstruction. The proximal and mid small bowel loops are nondilated withour additional acute findings. Date of CT of 07/07/2020 SP: Exploratory Laparotomy with lysis of adhesions, small bowel resection, secondary enteroenterostomy to re-establish RNY small bowel anatomy Excision of peritoneal implant removal of abnormal portion of intraperitoneal mesh placement of interceed mesh x 2 Date of Surgery: 06/11/2020 2. Diabetes I 3. Hyperlipidemia 4.Peripheral Neuropathy 5. SP RNY Gastric Bypass Surgery Revision 6. Depression Plan: Admit to [facility] See Copy of orders in EMR Laurie Broussard 07/08/2020 - Mortality Measure Prognosis:: Good
[2020-07-08] MEDS ORDERED: Aluminum Hydroxide/Magnesium Hydroxide/Simethicone Susp 30 ML Cup PO PRN (14:23)
[2020-07-08] MEDS ORDERED: oxyCODONE 5 MG Tab PO PRN (15:57)
[2020-07-08] MEDS: HYDROmorphone/Normal Saline 15 MG/30 ML PCA IV PRN (16:21)
[2020-07-08] MEDS: Linezolid 600 MG in Premix Bag 1 BAG IV SCH (16:27)
[2020-07-08] MEDS: Pantoprazole 40 MG Vial IV SCH (16:31)
[2020-07-08] MEDS: Meropenem 1 GM in Sodium Chloride 0.9% 100 ML IV SCH (17:39)
[2020-07-08] MEDS ORDERED: LORazepam 2 MG/ML SDV IVPUSH PRN (17:41)
[2020-07-08] MEDS: OLANZapine 5 MG Tab PO SCH ×3 (17:44→21:23)
[2020-07-08] MEDS: ClonazePAM 0.5 MG Tab PO PRN (17:45)
[2020-07-08] MEDS: Ondansetron 4 MG Tab.DIS PO PRN (19:49)
[2020-07-08] MEDS: Multivitamins with Iron/Calcium/Folic Acid/Minerals Tab PO SCH (21:10)
[2020-07-08] MEDS: lamoTRIgine 100 MG Tab PO SCH (21:10)
[2020-07-08] MEDS: Diltiazem 180 MG Cap.CD PO SCH (21:10)
[2020-07-08] MEDS: Gabapentin 400 MG Cap PO SCH (21:10)
[2020-07-08] MEDS: Insulin Glargine,Human Rec. Analog 100 Units/ML 3 ML Pen SUBCUT SCH (21:19)
[2020-07-09] MEDS: Meropenem 1 GM in Sodium Chloride 0.9% 100 ML IV SCH ×3 (00:17→17:25)
[2020-07-09] MEDS: Ondansetron 4 MG Tab.DIS PO PRN ×2 (00:17→15:45)
[2020-07-09] MEDS: ClonazePAM 0.5 MG Tab PO PRN ×3 (01:08→21:33)
[2020-07-09] MEDS: Lactated Ringers 1,000 ML IV SCH ×3 (01:10→22:36)
[2020-07-09] MEDS: Linezolid 600 MG in Premix Bag 1 BAG IV SCH ×2 (03:11→15:48)
[2020-07-09] MEDS ORDERED: Melatonin 3 MG Tab PO PRN (07:23)
[2020-07-09] MEDS: Insulin Lispro 100 Unit/ML 3 ML KwikPen SUBCUT PRN ×3 (07:34→17:28)
--- NOTE | 2020-07-09 08:37 | PN ---
DATE OF SERVICE: 07/09/2020 SUBJECTIVE: Savannah was admitted yesterday for partial small bowel obstruction. She is n.p.o. and will be having upper GI with small-bowel follow-through this morning. She reports she continues to have pain in mid epigastric area that radiates straight through her back. She also has a small area of cellulitis to the left of her umbilicus. Vital signs have been stable. She has been afebrile. States did not sleep very well, was up ambulating 4 times during the night. Blood sugars since admission have been 220, 198, and 311 at 0400. REVIEW OF SYSTEMS: Remainder of review of systems negative for any pertinent positives or negatives. OBJECTIVE: GENERAL: Savannah Damon is a pleasant 34-year-old female. She is alert and orientated. Face is flushed, swollen. VITAL SIGNS: TPR is 97.6, 110, 16, blood pressure 106/72. HEENT: Negative. NECK: Supple. HEART: Regular rate and rhythm. LUNGS: Clear. ABDOMEN: Tender in the midepigastric area. Also the small area of pinkness by her umbilicus has extended to about 2 inches below her umbilicus and about 3/4th of an inch to the left. There is a small area that has blistered at the top of the area of redness. EXTREMITIES: Without peripheral edema. ASSESSMENT: Partial small bowel obstruction and cellulitis to the left and below of abdominal incision. PLAN: 1. Call Regan Rendon MD, with results of the upper GI with small-bowel follow-through. 2. Check CBC, CMP, mag, and phos in a.m. Reminded to put SCDs on. The patient is at risk for DVTs. 3. Melatonin 8 mg at bedtime p.r.n. sleep. 4. We will evaluate p.r.n. or in a.m. Laurie Huntley PA-C /[id number]
[2020-07-09] MEDS ORDERED: Barium Sulfate 98% Powder for Susp 340 GM Bottle PO SCH (10:15)
[2020-07-09] MEDS ORDERED: Diatrizoate Meglumine/Diatrizoate Sodium 37% 120 ML Bottle PO SCH (11:00)
[2020-07-09] MEDS: lamoTRIgine 100 MG Tab PO SCH ×2 (13:06→21:34)
[2020-07-09] MEDS: Gabapentin 400 MG Cap PO SCH ×3 (13:06→21:34)
[2020-07-09] MEDS: Multivitamins with Iron/Calcium/Folic Acid/Minerals Tab PO SCH ×2 (13:07→21:36)
--- NOTE | 2020-07-09 13:13 | CR ---
UGI w Small Bowel wo Air CLINICAL HISTORY: Small bowel obstruction, previous bariatric surgery FINDINGS: Patient swallowed thin barium without difficulty. No esophageal strictures identified. There was some free gastroesophageal reflux. The patient is status post Alysa-en-Y gastric bypass. There is no obstruction or extravasation. The jejunum fills quickly with no distention. Mucosal pattern is normal. After approximately 1 hour there is minimal progression of barium into the ileum. Patient was then given approximately 10 cc of Gastrografin. The the next the image showed contrast entering the cecum. A 2 hour 10 minute image was obtained showing contrast in the descending colon. There is no significant bowel distention. IMPRESSION: Patient is status post bariatric surgery with Alysa-en-Y Gastroesophageal reflux to the cervical esophagus Slow transit through the mid to distal small bowel without evidence of obstruction
[2020-07-09] MEDS ORDERED: Polyethylene Glycol 3350 Powder 119 GM Bottle PO ONE (13:30)
[2020-07-09] MEDS: Ferrous Sulfate 325 MG Tab PO SCH (13:53)
[2020-07-09] MEDS: Vitamin B Complex Tab PO SCH (13:53)
[2020-07-09] MEDS: Venlafaxine 75 MG Cap.ER PO SCH (13:53)
[2020-07-09] MEDS: Vitamin A 10,000 Unit Cap PO SCH (13:54)
[2020-07-09] MEDS: Furosemide 40 MG Tab PO SCH (13:54)
[2020-07-09] MEDS: Folic Acid 1 MG Tab PO SCH (13:54)
[2020-07-09] MEDS: Polyethylene Glycol 3350 Powder 17 GM Packet PO SCH (13:54)
[2020-07-09] MEDS: Cholecalciferol (Vitamin D3) 50,000 Unit Cap PO SCH (13:54)
[2020-07-09] MEDS: Cyanocobalamin (Vitamin B12) 1,000 MCG Tab SL SCH (13:55)
[2020-07-09] MEDS: Pantoprazole 40 MG Vial IV SCH (13:59)
[2020-07-09] MEDS ORDERED: Lidocaine 1% 2 ML ONE (14:12)
[2020-07-09] MEDS: diphenhydrAMINE 25 MG Cap PO PRN (16:36)
[2020-07-09] MEDS: OLANZapine 5 MG Tab PO SCH (16:36)
[2020-07-09] MEDS: Diltiazem 180 MG Cap.CD PO SCH (21:34)
[2020-07-09] MEDS: Insulin Glargine,Human Rec. Analog 100 Units/ML 3 ML Pen SUBCUT SCH (21:36)
[2020-07-10] MEDS: Meropenem 1 GM in Sodium Chloride 0.9% 100 ML IV SCH ×4 (00:15→23:29)
[2020-07-10] MEDS: Acetaminophen 325 MG Tab PO PRN ×4 (00:21→20:33)
[2020-07-10] MEDS: Linezolid 600 MG in Premix Bag 1 BAG IV SCH ×2 (02:14→14:27)
[2020-07-10] MEDS: HYDROmorphone/Normal Saline 15 MG/30 ML PCA IV PRN (06:42)
[2020-07-10] MEDS: Ondansetron 4 MG Tab.DIS PO PRN ×2 (06:50→20:40)
[2020-07-10] MEDS: Insulin Lispro 100 Unit/ML 3 ML KwikPen SUBCUT PRN ×3 (08:07→21:22)
[2020-07-10] MEDS: Lactated Ringers 1,000 ML IV SCH ×2 (08:20→21:15)
[2020-07-10] MEDS ORDERED: Polyethylene Glycol 3350 Powder 119 GM Bottle PO ONE (09:00)
[2020-07-10] MEDS: Ferrous Sulfate 325 MG Tab PO SCH (09:24)
[2020-07-10] MEDS: Venlafaxine 75 MG Cap.ER PO SCH (09:24)
[2020-07-10] MEDS: Polyethylene Glycol 3350 Powder 17 GM Packet PO SCH (09:25)
[2020-07-10] MEDS: Furosemide 40 MG Tab PO SCH (09:25)
[2020-07-10] MEDS: lamoTRIgine 100 MG Tab PO SCH ×2 (09:25→20:33)
[2020-07-10] MEDS: Folic Acid 1 MG Tab PO SCH (09:25)
[2020-07-10] MEDS: Vitamin B Complex Tab PO SCH (09:26)
[2020-07-10] MEDS: Vitamin A 10,000 Unit Cap PO SCH (09:26)
[2020-07-10] MEDS: Gabapentin 400 MG Cap PO SCH ×3 (09:26→20:34)
[2020-07-10] MEDS: Multivitamins with Iron/Calcium/Folic Acid/Minerals Tab PO SCH ×2 (09:26→20:34)
[2020-07-10] MEDS: Cyanocobalamin (Vitamin B12) 1,000 MCG Tab SL SCH (09:27)
[2020-07-10] MEDS: diphenhydrAMINE 25 MG Cap PO PRN (09:27)
[2020-07-10] MEDS: ClonazePAM 0.5 MG Tab PO PRN ×2 (12:02→20:33)
[2020-07-10] MEDS: Pantoprazole 40 MG Vial IV SCH (14:25)
[2020-07-10] MEDS: Pantoprazole 40 MG Tab.CR PO SCH (17:01)
[2020-07-10] MEDS: OLANZapine 5 MG Tab PO SCH (17:02)
[2020-07-10] MEDS: Diltiazem 180 MG Cap.CD PO SCH (20:35)
[2020-07-10] MEDS: Insulin Glargine,Human Rec. Analog 100 Units/ML 3 ML Pen SUBCUT SCH (21:17)
[2020-07-11] MEDS: Acetaminophen 325 MG Tab PO PRN ×3 (00:06→08:35)
[2020-07-11] MEDS: Ondansetron 4 MG Tab.DIS PO PRN ×2 (00:07→04:32)
[2020-07-11] MEDS: Linezolid 600 MG in Premix Bag 1 BAG IV SCH ×3 (03:31→14:49)
[2020-07-11] MEDS: Insulin Lispro 100 Unit/ML 3 ML KwikPen SUBCUT PRN ×3 (06:51→17:18)
[2020-07-11] MEDS: Meropenem 1 GM in Sodium Chloride 0.9% 100 ML IV SCH ×2 (07:43→16:55)
[2020-07-11] MEDS: Venlafaxine 75 MG Cap.ER PO SCH (08:08)
[2020-07-11] MEDS: Ferrous Sulfate 325 MG Tab PO SCH (08:09)
[2020-07-11] MEDS: lamoTRIgine 100 MG Tab PO SCH ×2 (08:09→21:00)
[2020-07-11] MEDS: Folic Acid 1 MG Tab PO SCH (08:09)
[2020-07-11] MEDS: Furosemide 40 MG Tab PO SCH (08:10)
[2020-07-11] MEDS: Gabapentin 400 MG Cap PO SCH ×3 (08:10→20:59)
[2020-07-11] MEDS: Multivitamins with Iron/Calcium/Folic Acid/Minerals Tab PO SCH ×2 (08:10→21:00)
[2020-07-11] MEDS: Vitamin A 10,000 Unit Cap PO SCH (08:11)
[2020-07-11] MEDS: Vitamin B Complex Tab PO SCH (08:11)
[2020-07-11] MEDS: Cyanocobalamin (Vitamin B12) 1,000 MCG Tab SL SCH (08:11)
[2020-07-11] MEDS: Polyethylene Glycol 3350 Powder 17 GM Packet PO SCH (08:12)
[2020-07-11] MEDS ORDERED: Polyethylene Glycol 3350 Powder 119 GM Bottle PO ONE (08:30)
[2020-07-11] MEDS: ClonazePAM 0.5 MG Tab PO PRN ×2 (10:44→20:59)
[2020-07-11] MEDS: HYDROmorphone/Normal Saline 15 MG/30 ML PCA IV PRN (13:07)
--- NOTE | 2020-07-11 14:53 | PN ---
DATE OF SERVICE: 07/10/2020 The patient has been afebrile with stable vital signs. Still has upper sats intermittently into the mid 80s even though she is fairly wide awake. Blood sugar control has been good. The abdominal x-ray shows all of the contrast to be in the colon, so we are not really dealing with a bowel obstruction, but probably somewhat of a slow transit. We will go up to step 3 diet, give her some MiraLAX today and recheck an abdominal x-ray tomorrow. The redness in the periumbilical area around the recent incision has decreased quite a bit. I think we will obtain an ultrasound tomorrow morning to see if there is a fluid collection in that area, which will help guide treatment if there happens to be a nub involving an infected fluid collection in that area. Regan Rendon MD /[id number]
[2020-07-11] MEDS: OLANZapine 5 MG Tab PO SCH (16:58)
[2020-07-11] MEDS: Pantoprazole 40 MG Tab.CR PO SCH (16:58)
--- NOTE | 2020-07-11 16:59 | PN ---
DATE OF SERVICE: 07/11/2020 The patient has been afebrile with stable vital signs. She is passing some stools. Abdominal x-ray still shows a large amount of barium, but certainly decreased from yesterday. We will give her some additional MiraLAX today. Recheck abdominal x-ray. The redness on the abdominal wall is roughly status quo, perhaps a little bit less than yesterday, but still present to some degree. An ultrasound was suggestive of some possible small fluid collection in that area, although in the past we have seen this reported in similar cases where it turned out to be simply edema in the subcutaneous tissue that appears fluid-like due to the water content within the fat. At any rate, we will reassess things tomorrow morning. If the redness is still persistent, we will at that point probably explore the abdominal wall, possibly removing the mesh if necessary and a central line will be placed at that time. Otherwise, we will continue the IV antibiotics for today. Regan Rendon MD /[id number]
[2020-07-11] MEDS: Diltiazem 180 MG Cap.CD PO SCH (21:00)
[2020-07-11] MEDS: Insulin Glargine,Human Rec. Analog 100 Units/ML 3 ML Pen SUBCUT SCH (21:14)
[2020-07-11] MEDS ORDERED: Amoxicillin/Clavulanate K 875-125 MG Tab PO ONE (21:34)
[2020-07-11] MEDS: HYDROmorphone 2 MG Tab PO PRN (21:52)
[2020-07-12] MEDS: HYDROmorphone 2 MG Tab PO PRN ×2 (01:59→04:30)
[2020-07-12 07:15] VITALS: BP 109/64; PULSE 103
[2020-07-12] MEDS ORDERED: HYDROmorphone 2 MG Tab PO PRN (07:25)
[2020-07-12] MEDS ORDERED: Amoxicillin/Clavulanate K 875-125 MG Tab PO SCH (08:00)
[2020-07-12] MEDS ORDERED: Lubiprostone 24 MCG Cap PO SCH (08:00)
[2020-07-12] MEDS: Folic Acid 1 MG Tab PO SCH (08:19)
[2020-07-12] MEDS: Ferrous Sulfate 325 MG Tab PO SCH (08:19)
[2020-07-12] MEDS: Venlafaxine 75 MG Cap.ER PO SCH (08:19)
[2020-07-12] MEDS: lamoTRIgine 100 MG Tab PO SCH (08:20)
[2020-07-12] MEDS: Multivitamins with Iron/Calcium/Folic Acid/Minerals Tab PO SCH (08:20)
[2020-07-12] MEDS: Vitamin A 10,000 Unit Cap PO SCH (08:20)
[2020-07-12] MEDS: Polyethylene Glycol 3350 Powder 17 GM Packet PO SCH (08:20)
[2020-07-12] MEDS: Gabapentin 400 MG Cap PO SCH (08:20)
[2020-07-12] MEDS: Furosemide 40 MG Tab PO SCH (08:20)
[2020-07-12] MEDS: Cyanocobalamin (Vitamin B12) 1,000 MCG Tab SL SCH (08:21)
[2020-07-12] MEDS: Vitamin B Complex Tab PO SCH (08:21)
[2020-07-12] MEDS: Cholecalciferol (Vitamin D3) 50,000 Unit Cap PO SCH (08:21)
[2020-07-12] MEDS: Acetaminophen 325 MG Tab PO PRN (08:36)
[2020-07-12] MEDS ORDERED: Fluconazole 100 MG Tab PO SCH (09:00)
[2020-07-12] MEDS ORDERED: Amoxicillin/Clavulanate K 875-125 MG Tab PO ONE (09:00)
--- NOTE | 2020-07-12 09:10 | DISCH ---
ADMISSION DIAGNOSES: 1. Partial small bowel obstruction. 2. Small area of cellulitis lower incision. 3. Status post exploratory lap with lysis of adhesions, 06/11/2020. 4. Status post Alysa-en-Y revision. 5. Diabetes type 1. 6. Hypercholesterolemia. 7. Chronic constipation. 8. Iron deficiency anemia. 9. B12 deficiency. 10.Vitamin D deficiency. POSTOPERATIVE DIAGNOSIS: 1. Resolution of partial small bowel obstruction/ileus. 2. Improvement of cellulitis, abdomen. HISTORY: Savannah Damon is a pleasant 34-year-old female. She presented to the clinic with left upper quadrant and periumbilical abdominal pain. CT showed partial small bowel obstruction and she had some cellulitis at her periumbilical area. She was admitted on 07/08/2020 and was started on 2 IV antibiotics, Azactam, and meropenem, and had an upper GI with small-bowel follow-through on 07/09/2020. She continued with daily flat and upright abdominal films, barium cleared slowly, showed some bowel immobility, and she continued to improve. Vital signs stable. The area of redness almost completely resolved. She was able to be discharged to home. After having 2 bowel movements, the redness dissolved and she will be on oral antibiotics. PHYSICAL EXAMINATION: GENERAL: Savannah Damon is a pleasant 34-year-old female. VITAL SIGNS: Height 5 feet 4 inches, weight is 213 pounds. TPR is 97.3, 103, 14, blood pressure 109/64. HEENT: Negative. NECK: Supple. HEART: Regular rate and rhythm. LUNGS: Clear. ABDOMEN: Soft, nontender. The area of redness is very light pink right now and nontender. EXTREMITIES: Without peripheral edema. DISPOSITION: Discharged to home. CONDITION: Stable and improving. FOLLOWUP: Appointment with Laurie Huntley PA-C, on , 07/15/2020 at 9 a.m. HOME MEDICATION: 1. Amitiza 24 mcg p.o. b.i.d. #60, 11 refills. 2. Augmentin 875/125 mg 1 tablet q.12 hours, #20. 3. Dilaudid 2 mg p.o. q.6 hours p.r.n. pain #28. 4. MiraLax 119 g daily for 7 days. 5. Diflucan 100 mg p.o. daily to take x5 days if needed for yeast infection. 6. To resume home medications. DIET: Step 3 gastric bypass diet/diabetic diet. Drink 8 to 10 glasses of water a day. ACTIVITY: As tolerated. May shower. DISCHARGE INSTRUCTIONS: Notify provider if any fever, increased pain, swelling, redness, drainage, nausea, vomiting. /[id number]
--- NOTE | 2020-07-12 09:30 | CR ---
Abdomen 2V AP Flat Upright CLINICAL HISTORY: Abdominal pain FINDINGS: There is barium throughout the colon which is nondistended. There is filling the appendix. Small intestinal configuration is nonacute. Patient has had previous ventral hernia repair IMPRESSION: Contrast from previous small bowel follow-through is normal throughout the colon. Intestinal gas pattern is nonacute
--- NOTE | 2020-07-12 10:01 | CR ---
Abdomen 2V AP Flat Upright CLINICAL HISTORY: Barium evaluation from previous small bowel follow-through FINDINGS: There is a moderate amount of barium throughout the colon including the rectosigmoid. This pattern is similar to the 07/10/2020 study no free air is seen. There is been previous ventral hernia repair IMPRESSION: Large amount of contrast persists throughout the colon similar to prior study
--- NOTE | 2020-07-12 11:05 | CR ---
Abdomen 2V AP Flat Upright CLINICAL HISTORY: Previous small bowel follow through, evaluate barium FINDINGS: There is decreasing barium throughout the the colon. Small intestinal gas pattern is nonspecific. No free air is seen. There is been previous abdominal surgery IMPRESSION: The amount of barium in the colon is decreasing when compared to prior studies
--- NOTE | 2020-07-12 11:06 | US ---
Abdomen Ltd CLINICAL HISTORY: Previous ventral hernia repair, fluid collection FINDINGS: There is limited imaging in the periumbilical region due to an abdominal mesh. There is a 1.0 x 0.7 x 0.7 cm fluid collection just to the right of the umbilicus. There is no internal flow. IMPRESSION: Tiny right periumbilical fluid collection described above. This may be a seroma Previous ventral hernia repair
== END 2020-07-12 12:24 | disposition home or self-care (01) | DRG 863 ==
LOC: JP.MS 12:35
PROVIDERS: ADMIT Surgery; ATTEND Surgery
DX: T81.41XA Infection following a procedure, superficial incisional surgical site, initial encounter (principal); K91.31 Postprocedural partial intestinal obstruction; L03.311 Cellulitis of abdominal wall; E10.9 Type 1 diabetes mellitus without complications; E78.00 Pure hypercholesterolemia, unspecified; K59.09 Other constipation; D50.9 Iron deficiency anemia, unspecified; E53.8 Deficiency of other specified B group vitamins; E55.9 Vitamin D deficiency, unspecified; E78.5 Hyperlipidemia, unspecified; G62.9 Polyneuropathy, unspecified; F32.9 Major depressive disorder, single episode, unspecified; Z98.84 Bariatric surgery status; Z88.8 Allergy status to other drugs, medicaments and biological substances; Z79.4 Long term (current) use of insulin; Z98.890 Other specified postprocedural states
CPT/HCPCS: 36415; 74019; 74019-26; 74240; 74240-26; 74248; 76705; 76705-26; 80053; 82962; 83605; 83735; 84100; 85025; 85027; 94762; A9270-GY; C9113; J1170; J1815; J1815-GY; J2020; J2185; J7120; Q9963; U0002

== ENCOUNTER 2021-06-20 07:15 | Inpatient (IN) | payer MEDICAID ==
[2021-07-01] MEDS ORDERED: Acetaminophen 500 MG Tab PO ONE (06:30)
[2021-07-01] MEDS ORDERED: Dextrose 5%-Lactated Ringers 1,000 ML IV SCH (06:30)
[2021-07-01] MEDS ORDERED: Celecoxib 200 MG Cap PO ONE (06:30)
[2021-07-01] MEDS ORDERED: Lidocaine 1% with EPINEPHrine 1:100,000 50 ML MDV ONE (06:38)
[2021-07-01] MEDS ORDERED: Meropenem 500 MG SDV ONE (06:38)
[2021-07-01] MEDS ORDERED: Bupivacaine 0.5% 50 ML MDV ONE (06:38)
[2021-07-01] MEDS ORDERED: Propofol 200 MG/20 ML SDV ONE (07:09)
[2021-07-01] MEDS ORDERED: Rocuronium 50 MG/5 ML Vial ONE (07:09)
[2021-07-01] MEDS ORDERED: Neostigmine Methylsulfate 1 MG/ML 5 ML Syringe ONE (07:09)
[2021-07-01] MEDS ORDERED: Dexamethasone 4 MG/ML SDV ONE (07:09)
[2021-07-01] MEDS ORDERED: Glycopyrrolate 0.2 MG/ML 5 ML MDV ONE (07:09)
[2021-07-01] MEDS ORDERED: Ondansetron 4 MG/2 ML SDV ONE (07:09)
[2021-07-01] MEDS ORDERED: fentaNYL 250 MCG/5 ML SDV ONE ×2 (07:10→07:55)
[2021-07-01] MEDS ORDERED: Albuterol/Ipratropium 3.0-0.5 MG/3 ML Neb Soln NEB ONE (07:30)
[2021-07-01] MEDS ORDERED: ceFAZolin 2 GM in Premix Bag 1 BAG IV ONE (07:30)
[2021-07-01] MEDS ORDERED: Ketamine 17 MG in Sodium Chloride 0.9% 19.83 ML IV SCH (08:00)
[2021-07-01] MEDS ORDERED: Ketamine 500 MG/5 ML MDV IV SCH (08:00)
[2021-07-01] MEDS ORDERED: Ondansetron 4 MG/2 ML SDV IVPUSH PRN ×2 (08:16→11:00)
[2021-07-01] MEDS ORDERED: Naloxone 0.4 MG/ML SDV IVPUSH PRN (08:16)
[2021-07-01] MEDS ORDERED: diphenhydrAMINE 25 MG Cap PO PRN (08:16)
[2021-07-01] MEDS ORDERED: diphenhydrAMINE 50 MG/ML SDV IVPUSH PRN ×2 (08:16→11:00)
[2021-07-01] MEDS ORDERED: Lactated Ringers 1,000 ML ONE (08:24)
[2021-07-01] MEDS ORDERED: fentaNYL 100 MCG/2 ML SDV ONE (08:38)
[2021-07-01] MEDS: HYDROmorphone/Normal Saline 6 MG/30 ML PCA Vial IV PRN ×2 (08:41→18:06)
[2021-07-01] MEDS ORDERED: Naloxone 0.4 MG/ML SDV IV PRN (09:00)
[2021-07-01] MEDS ORDERED: Glucagon,Human Recombinant 1 MG Vial IM PRN ×2 (09:12→21:27)
[2021-07-01] MEDS ORDERED: 50% Dextrose in Water 50 ML Syringe IVPUSH PRN ×2 (09:12→21:27)
[2021-07-01] MEDS ORDERED: Insulin Lispro 100 Unit/ML 3 ML KwikPen SUBCUT ONE ×3 (09:30→21:27)
[2021-07-01] MEDS ORDERED: Cyclobenzaprine 10 MG Tab PO PRN (10:22)
[2021-07-01] MEDS: Albuterol/Ipratropium 3.0-0.5 MG/3 ML Neb Soln INH SCH ×3 (10:38→20:06)
[2021-07-01] MEDS ORDERED: ClonazePAM 0.5 MG Tab PO PRN (10:49)
[2021-07-01] MEDS ORDERED: Glucose Gel 15 GM in 37.5 GM Tube PO PRN (10:55)
[2021-07-01] MEDS ORDERED: Insulin Lispro 100 Unit/ML 3 ML KwikPen SUBCUT PRN (10:55)
[2021-07-01] MEDS ORDERED: Metoclopramide 10 MG/2 ML SDV IVPUSH PRN (11:00)
[2021-07-01] MEDS ORDERED: Labetalol 20 MG/4 ML Syringe IVPUSH PRN (11:00)
[2021-07-01] MEDS ORDERED: hydrOXYzine HCL 100 MG/2 ML SDV IM PRN (11:00)
[2021-07-01] MEDS ORDERED: Albuterol/Ipratropium 3.0-0.5 MG/3 ML Neb Soln INH PRN (11:00)
[2021-07-01] MEDS ORDERED: Acetaminophen 500 MG Tab PO PRN (11:00)
[2021-07-01] MEDS: Insulin Lispro 100 Unit/ML 3 ML KwikPen SUBCUT SCH ×2 (12:06→17:31)
[2021-07-01] MEDS: Amylase/Lipase/Protease 12,000 Unit Cap.CR PO SCH ×2 (12:10→17:30)
[2021-07-01] MEDS: Pantoprazole 40 MG Vial IVPUSH SCH (12:10)
[2021-07-01] MEDS ORDERED: Lactated Ringers 1,000 ML IV SCH (13:30)
[2021-07-01] MEDS ORDERED: Sodium Ferric Gluconate Cmplex 250 MG in Sodium Chloride 0.9% 100 ML IV SCH (14:00)
[2021-07-01] MEDS: Acetaminophen 500 MG Tab PO SCH ×2 (14:24→21:57)
[2021-07-01] MEDS: ceFAZolin 2 GM in Premix Bag 1 BAG IV SCH (15:03)
[2021-07-01] MEDS ORDERED: MVI, Adult with Vitamin K 10 ML, Thiamine 200 MG, Zinc/Copper/Manganese/Selenium 1 ML i... IV SCH ×8 (16:00→20:00)
[2021-07-01] MEDS: diphenhydrAMINE 25 MG Cap PO PRN ×2 (17:26→22:34)
[2021-07-01] MEDS: lamoTRIgine 100 MG Tab PO SCH (20:07)
[2021-07-01] MEDS ORDERED: Insulin Glargine,Human Rec. Analog 100 Units/ML 3 ML Pen SUBCUT SCH (21:00)
[2021-07-01] MEDS ORDERED: OLANZapine 5 MG Tab PO SCH (21:00)
[2021-07-02] MEDS: ceFAZolin 2 GM in Premix Bag 1 BAG IV SCH ×2 (00:19→07:31)
[2021-07-02] MEDS: Acetaminophen 500 MG Tab PO SCH ×2 (05:29→13:10)
[2021-07-02] MEDS: Albuterol/Ipratropium 3.0-0.5 MG/3 ML Neb Soln INH SCH ×2 (07:22→10:46)
[2021-07-02] MEDS: diphenhydrAMINE 25 MG Cap PO PRN (07:31)
[2021-07-02] MEDS: Amylase/Lipase/Protease 12,000 Unit Cap.CR PO SCH ×2 (07:37→12:32)
[2021-07-02] MEDS: Insulin Lispro 100 Unit/ML 3 ML KwikPen SUBCUT SCH ×2 (07:52→12:32)
[2021-07-02] MEDS ORDERED: Lactated Ringers 1,000 ML IV SCH (08:15)
[2021-07-02] MEDS: oxyCODONE 5 MG Tab PO PRN ×2 (08:29→12:32)
[2021-07-02] MEDS: lamoTRIgine 100 MG Tab PO SCH (08:31)
[2021-07-02] MEDS ORDERED: Metoprolol Tartrate 25 MG Tab PO SCH (09:00)
[2021-07-02] MEDS ORDERED: Venlafaxine 75 MG Cap.ER PO SCH (09:00)
[2021-07-02] MEDS ORDERED: Celecoxib 200 MG Cap PO SCH (09:00)
[2021-07-02] MEDS ORDERED: Magnesium Hydroxide 400 MG/5 ML Susp 30 ML Cup PO ONE (09:00)
[2021-07-02] MEDS ORDERED: Sodium Ferric Gluconate Cmplex 250 MG in Sodium Chloride 0.9% 100 ML IV SCH (09:00)
[2021-07-02 11:02] VITALS: BP 133/77; PULSE 93
[2021-07-02] MEDS: Pantoprazole 40 MG Vial IVPUSH SCH (13:10)
[2021-07-03] MEDS ORDERED: Cyanocobalamin (Vitamin B12) 1,000 MCG/ML SDV IM ONE (09:00)
== END 2021-07-02 13:45 | disposition home or self-care (01) | DRG 355 ==
LOC: JP.SDS 07-01 05:55 → JP.SDSSCHI 07-01 05:55 → EDSTATUS 07-01 07:15 → JP.MS 07-01 09:00
PROVIDERS: ADMIT Surgery; ATTEND Surgery
PROC: 0WUF0JZ Supplement Abdominal Wall with Synthetic Substitute, Open Approach (ICD-10-PCS; principal; 2021-07-01)
PROC: 0DBW0ZZ Excision of Peritoneum, Open Approach (ICD-10-PCS; 2021-07-01)
PROC: 3E0M05Z Introduction of Adhesion Barrier into Peritoneal Cavity, Open Approach (ICD-10-PCS; 2021-07-01)
DX: K43.0 Incisional hernia with obstruction, without gangrene (principal); E61.1 Iron deficiency; E10.42 Type 1 diabetes mellitus with diabetic polyneuropathy; E66.9 Obesity, unspecified; E78.5 Hyperlipidemia, unspecified; F31.70 Bipolar disorder, currently in remission, most recent episode unspecified; I25.10 Atherosclerotic heart disease of native coronary artery without angina pectoris; F43.10 Post-traumatic stress disorder, unspecified; F31.76 Bipolar disorder, in full remission, most recent episode depressed; K21.9 Gastro-esophageal reflux disease without esophagitis; G43.909 Migraine, unspecified, not intractable, without status migrainosus; Z88.8 Allergy status to other drugs, medicaments and biological substances; Z68.32 Body mass index [BMI] 32.0-32.9, adult; Z98.84 Bariatric surgery status; Z87.891 Personal history of nicotine dependence; Z90.49 Acquired absence of other specified parts of digestive tract; Z98.51 Tubal ligation status
CPT/HCPCS: 36415; 82947; 84703; 94640; A9270-GY; C1713; C1781; C9113; J0171; J0690; J1100; J1170; J1200; J1815; J1815-GY; J2020; J2185; J2405; J2704; J2710; J2795; J2916; J3010; J3411; J3490; J7120; J7121; J7620-GY

== ENCOUNTER 2022-07-25 07:44 | Inpatient (IN) | payer MEDICAID ==
[2022-07-25] MEDS ORDERED: fentaNYL 250 MCG/5 ML SDV ONE (07:51)
[2022-07-25] MEDS ORDERED: Ondansetron 4 MG/2 ML SDV ONE ×2 (07:52→11:44)
[2022-07-25] MEDS ORDERED: Dexamethasone 4 MG/ML SDV ONE ×2 (07:52→11:44)
[2022-07-25] MEDS ORDERED: Neostigmine Methylsulfate 1 MG/ML 5 ML Syringe ONE ×2 (07:52→11:44)
[2022-07-25] MEDS ORDERED: Propofol 200 MG/20 ML SDV ONE ×2 (07:52→11:44)
[2022-07-25] MEDS ORDERED: Succinylcholine 200 MG/10 ML MDV ONE (07:52)
[2022-07-25] MEDS ORDERED: Glycopyrrolate 0.2 MG/ML 5 ML MDV ONE ×2 (07:52→11:44)
[2022-07-25] MEDS ORDERED: Rocuronium 50 MG/5 ML Vial ONE ×2 (07:52→11:44)
[2022-07-25] MEDS ORDERED: diphenhydrAMINE 50 MG/ML SDV IVPUSH PRN (08:00)
[2022-07-25] MEDS ORDERED: Naloxone 0.4 MG/ML SDV IVPUSH PRN (08:00)
[2022-07-25] MEDS ORDERED: diphenhydrAMINE 25 MG Cap PO PRN (08:00)
[2022-07-25] MEDS ORDERED: Scopolamine 1.5 MG Transdermal Patch TOP ONE (08:00)
[2022-07-25] MEDS ORDERED: Ondansetron 4 MG/2 ML SDV IVPUSH PRN ×3 (08:00→16:00)
[2022-07-25] MEDS ORDERED: Dextrose 5%-Lactated Ringers 1,000 ML IV SCH (08:30)
[2022-07-25] MEDS ORDERED: Bupivacaine 0.5% 50 ML MDV ONE (08:48)
[2022-07-25] MEDS ORDERED: Meropenem 500 MG SDV ONE (08:48)
[2022-07-25] MEDS ORDERED: Lidocaine 1% with EPINEPHrine 1:100,000 50 ML MDV ONE (08:49)
[2022-07-25] MEDS ORDERED: Naloxone 0.4 MG/ML SDV IV PRN (09:00)
[2022-07-25] MEDS ORDERED: ceFAZolin 2 GM in Premix Bag 1 BAG IV ONE (09:15)
[2022-07-25] MEDS ORDERED: Albuterol/Ipratropium 3.0-0.5 MG/3 ML Neb Soln NEB ONE (09:15)
[2022-07-25] MEDS ORDERED: ceFAZolin 2 GM in Sodium Chloride 0.9% 50 ML IV ONE (09:15)
[2022-07-25] MEDS: HYDROmorphone/Normal Saline 6 MG/30 ML PCA Vial IV PRN ×2 (09:27→18:29)
[2022-07-25] MEDS ORDERED: Ketamine 500 MG/5 ML MDV IV SCH (09:30)
[2022-07-25] MEDS ORDERED: Ketamine 17 MG in Sodium Chloride 0.9% 19.83 ML IV SCH (09:30)
[2022-07-25] MEDS ORDERED: Bupivacaine 0.5% 50 ML MDV INJECT ONE ×2 (10:16)
[2022-07-25] MEDS ORDERED: Lidocaine 1% with EPINEPHrine 1:100,000 50 ML MDV INJECT ONE ×2 (10:16)
[2022-07-25] MEDS ORDERED: Meropenem 500 MG SDV IRR ONE (10:17)
[2022-07-25] MEDS ORDERED: Linezolid 600 MG/300 ML Premix Bag IRR ONE (10:17)
[2022-07-25] MEDS ORDERED: hydrOXYzine HCl 50 MG/ML SDV IM ONE (12:00)
[2022-07-25] MEDS ORDERED: 50% Dextrose in Water 50 ML Syringe IVPUSH PRN (12:28)
[2022-07-25] MEDS ORDERED: Glucose Gel 15 GM in 37.5 GM Tube PO PRN (12:28)
[2022-07-25] MEDS ORDERED: Glucagon,Human Recombinant 1 MG Vial IM PRN (12:28)
[2022-07-25] MEDS: Lactated Ringers 1,000 ML IV SCH (13:08)
[2022-07-25] MEDS ORDERED: Cyclobenzaprine 10 MG Tab PO PRN (13:36)
[2022-07-25] MEDS ORDERED: Albuterol/Ipratropium 3.0-0.5 MG/3 ML Neb Soln INH PRN (13:39)
[2022-07-25] MEDS ORDERED: Acetaminophen 500 MG Tab PO PRN (13:45)
[2022-07-25] MEDS ORDERED: Labetalol 20 MG/4 ML Syringe IVPUSH PRN (13:45)
[2022-07-25] MEDS ORDERED: Metoclopramide 10 MG/2 ML SDV IVPUSH PRN (13:45)
[2022-07-25] MEDS ORDERED: MVI, Adult with Vitamin K 10 ML, Thiamine 200 MG, Zinc/Copper/Manganese/Selenium 1 ML i... IV SCH ×4 (16:00)
[2022-07-25] MEDS: Famotidine 20 MG/2 ML SDV IV SCH (16:25)
[2022-07-25] MEDS: methylPREDNISolone Sodium Succinate 125 MG/2 ML SDV IV SCH (16:28)
[2022-07-25] MEDS: Pantoprazole 40 MG Vial IVPUSH SCH (16:30)
[2022-07-25] MEDS: Sodium Ferric Gluconate Cmplex 250 MG in Sodium Chloride 0.9% 100 ML IV SCH (16:30)
[2022-07-25] MEDS: Heparin Sodium 5,000 Units/ML Vial SUBCUT SCH (17:48)
[2022-07-25] MEDS: ceFAZolin 2 GM in Sodium Chloride 0.9% 50 ML IV SCH (17:48)
[2022-07-25] MEDS: diphenhydrAMINE 50 MG/ML SDV IVPUSH PRN (20:38)
[2022-07-25] MEDS: OLANZapine 5 MG Tab PO SCH (20:42)
[2022-07-25] MEDS: lamoTRIgine 100 MG Tab PO SCH (20:42)
[2022-07-25] MEDS: MVI, Adult with Vitamin K 10 ML, Thiamine 200 MG, Zinc/Copper/Manganese/Selenium 1 ML i... IV SCH ×4 (20:46)
[2022-07-25] MEDS: Insulin Glargine,Human Rec. Analog 100 Units/ML 3 ML Pen SUBCUT SCH (21:48)
[2022-07-25] MEDS: Acetaminophen 500 MG Tab PO SCH (21:50)
[2022-07-26] MEDS: ceFAZolin 2 GM in Sodium Chloride 0.9% 50 ML IV SCH ×2 (01:32→09:44)
[2022-07-26] MEDS: HYDROmorphone/Normal Saline 6 MG/30 ML PCA Vial IV PRN (01:37)
[2022-07-26] MEDS: Lactated Ringers 1,000 ML IV SCH (04:14)
[2022-07-26] MEDS: Acetaminophen 500 MG Tab PO SCH ×3 (05:32→21:53)
[2022-07-26] MEDS: Heparin Sodium 5,000 Units/ML Vial SUBCUT SCH ×2 (05:32→17:24)
[2022-07-26] MEDS: diphenhydrAMINE 50 MG/ML SDV IVPUSH PRN (05:56)
[2022-07-26] MEDS ORDERED: oxyCODONE 5 MG Tab PO PRN (08:15)
[2022-07-26] MEDS: Venlafaxine 75 MG Cap.ER PO SCH (08:41)
[2022-07-26] MEDS: lamoTRIgine 100 MG Tab PO SCH ×2 (08:42→21:53)
[2022-07-26] MEDS: Celecoxib 200 MG Cap PO SCH ×2 (08:42→21:53)
[2022-07-26] MEDS: SCOPOLAMINE PATCH CHECK TOP SCH (08:51)
[2022-07-26] MEDS: hydrOXYzine HCl 50 MG/ML SDV IM PRN ×2 (12:28→20:40)
[2022-07-26] MEDS: oxyCODONE 5 MG Tab PO PRN ×3 (14:11→22:14)
[2022-07-26] MEDS: methylPREDNISolone Sodium Succinate 125 MG/2 ML SDV IV SCH (14:50)
[2022-07-26] MEDS: Pantoprazole 40 MG Vial IVPUSH SCH (14:52)
[2022-07-26] MEDS: Famotidine 20 MG/2 ML SDV IV SCH (14:53)
[2022-07-26] MEDS: Sodium Ferric Gluconate Cmplex 250 MG in Sodium Chloride 0.9% 100 ML IV SCH (15:03)
[2022-07-26] MEDS: Insulin Glargine,Human Rec. Analog 100 Units/ML 3 ML Pen SUBCUT SCH (21:53)
[2022-07-26] MEDS: OLANZapine 5 MG Tab PO SCH (22:00)
[2022-07-26] MEDS: MVI, Adult with Vitamin K 10 ML, Thiamine 200 MG, Zinc/Copper/Manganese/Selenium 1 ML i... IV SCH ×4 (22:15)
[2022-07-26 22:29] VITALS: PULSE 78
[2022-07-27] MEDS: oxyCODONE 5 MG Tab PO PRN ×2 (03:15→07:30)
[2022-07-27] MEDS: Acetaminophen 500 MG Tab PO SCH (06:02)
[2022-07-27] MEDS: Heparin Sodium 5,000 Units/ML Vial SUBCUT SCH (06:02)
[2022-07-27 07:32] VITALS: BP 106/76
[2022-07-27] MEDS ORDERED: Cyanocobalamin (Vitamin B12) 1,000 MCG/ML SDV IM ONE (09:00)
[2022-07-27] MEDS: lamoTRIgine 100 MG Tab PO SCH (09:22)
[2022-07-27] MEDS: Venlafaxine 75 MG Cap.ER PO SCH (09:22)
[2022-07-27] MEDS: Celecoxib 200 MG Cap PO SCH (09:22)
[2022-07-27] MEDS: SCOPOLAMINE PATCH CHECK TOP SCH (09:23)
== END 2022-07-27 10:05 | disposition home or self-care (01) | DRG 330 ==
LOC: JP.SDS 07:44 → JP.MS 12:57
PROVIDERS: ADMIT Surgery; ATTEND Surgery
PROC: 0WUF0JZ Supplement Abdominal Wall with Synthetic Substitute, Open Approach (ICD-10-PCS; principal; 2022-07-25)
PROC: 0DQ80ZZ Repair Small Intestine, Open Approach (ICD-10-PCS; 2022-07-25)
PROC: 3E0M05Z Introduction of Adhesion Barrier into Peritoneal Cavity, Open Approach (ICD-10-PCS; 2022-07-25)
DX: K43.0 Incisional hernia with obstruction, without gangrene (principal); F33.9 Major depressive disorder, recurrent, unspecified; E78.5 Hyperlipidemia, unspecified; D64.9 Anemia, unspecified; I25.10 Atherosclerotic heart disease of native coronary artery without angina pectoris; E10.42 Type 1 diabetes mellitus with diabetic polyneuropathy; F41.9 Anxiety disorder, unspecified; E66.9 Obesity, unspecified; Z79.899 Other long term (current) drug therapy; Z68.26 Body mass index [BMI] 26.0-26.9, adult
CPT/HCPCS: 36415; 82728; 82947; 94640; A9270-GY; C1713; C1781; C9113; J0131; J0171; J0330; J0690; J1100; J1170; J1200; J1644; J1815-GY; J2020; J2185; J2405; J2704; J2710; J2795; J2916; J2930; J3010; J3410; J3411; J3420; J3490; J7120; J7121; J7620

== ENCOUNTER 2023-01-26 09:34 | Inpatient (IN) | payer SELFPAY ==
[2023-01-26] MEDS ORDERED: Scopolamine 1.5 MG Transdermal Patch TRDERM ONE (10:00)
[2023-01-26 10:06] LABS: HEMATOCRIT 37.9 % (34.3-46.0); HEMOGLOBIN 12.5 g/dL (11.2-15.5); MEAN CORPUSCULAR HEMOGLOBIN 34.5 pg (31.6-35.5); MEAN CORPUSCULAR VOLUME 104.7 fL (81.4-99.0); RED BLOOD CELL COUNT 3.62 M/uL (3.77-5.24); WHITE BLOOD CELL COUNT,WBC 5.7 K/uL (3.2-11.0)
[2023-01-26] MEDS ORDERED: Meropenem 500 MG SDV ONE (10:08)
[2023-01-26] MEDS ORDERED: Lidocaine 1% with EPINEPHrine 1:100,000 50 ML MDV ONE (10:08)
[2023-01-26] MEDS ORDERED: Bupivacaine 0.5% 50 ML MDV ONE (10:08)
[2023-01-26 10:20] LABS: HEMOGLOBIN A1C 5.5 % (4.5-6.2)
[2023-01-26] MEDS ORDERED: Dextrose 5%-Lactated Ringers 1,000 ML IV SCH ×2 (10:30→15:30)
[2023-01-26 10:39] LABS: A/G RATIO 0.7 (1.2-2.2); ALANINE AMINOTRANSFERASE,ALT 46 U/L (12-78); ALBUMIN 2.5 g/dL (3.4-5.0); ALKALINE PHOSPHATASE 166 U/L (46-116); ASPARTATE AMNIOTRANSFERASE,AST 38 U/L (15-37); BILIRUBIN TOTAL 0.4 mg/dL (0.2-1.0); BLOOD UREA NITROGEN,BUN 11 mg/dL (7-18); CALCIUM 8.4 mg/dL (8.5-10.1); CARBON DIOXIDE,CO2 30 mmol/L (21-32); CHLORIDE,CL 103 mmol/L (100-108); CREATININE 0.7 mg/dL (0.6-1.0); EST CRCL DRUG DOSING (CG) 98.05 mL/min; ESTIMATED GFR 113 mL/min (>60); FERRITIN 53 ng/ml (8-388); GLUCOSE RANDOM 186 mg/dL (74-106); MAGNESIUM 1.7 mg/dL (1.8-2.4); PHOSPHORUS 4.9 mg/dL (2.5-4.9); POTASSIUM,K 4.4 mmol/L (3.6-5.2); PROTEIN TOTAL,TP 5.9 g/dL (6.4-8.2); SODIUM,NA 139 mmol/L (140-148)
[2023-01-26 10:40] LABS: ANION GAP 10.4 mmol/L (5.0-14.0)
[2023-01-26] MEDS ORDERED: cefOXitin 2 GM in Sodium Chloride 0.9% 50 ML IV ONE (11:30)
[2023-01-26] MEDS ORDERED: Ketamine 500 MG/5 ML MDV IV SCH (11:30)
[2023-01-26] MEDS ORDERED: Ketamine 17 MG in Sodium Chloride 0.9% 19.83 ML IV SCH (11:30)
[2023-01-26] MEDS ORDERED: Ropivacaine 40 ML, dexAMETHasone 8 MG, EPINEPHrine 0.4 MG, Sodium Chloride 0.9% 37.6 ML NERVRT SCH ×4 (11:30)
[2023-01-26] MEDS ORDERED: Neostigmine Methylsulfate 1 MG/ML 5 ML Syringe ONE (11:31)
[2023-01-26] MEDS ORDERED: Rocuronium 50 MG/5 ML Vial ONE (11:31)
[2023-01-26] MEDS ORDERED: Glycopyrrolate 0.2 MG/ML 5 ML MDV ONE (11:31)
[2023-01-26] MEDS ORDERED: Propofol 200 MG/20 ML SDV ONE (11:31)
[2023-01-26] MEDS ORDERED: Ondansetron 4 MG/2 ML SDV ONE (11:31)
[2023-01-26] MEDS ORDERED: Dexamethasone 4 MG/ML SDV ONE (11:31)
[2023-01-26] MEDS ORDERED: fentaNYL 250 MCG/5 ML SDV ONE (11:32)
[2023-01-26] MEDS ORDERED: Linezolid 600 MG/300 ML Premix Bag IRR ONE (14:10)
[2023-01-26] MEDS ORDERED: fentaNYL 50 MCG/ML SDV IVPUSH ONE (14:36)
[2023-01-26] MEDS ORDERED: Glucagon,Human Recombinant 1 MG Vial IM PRN ×2 (14:38→15:29)
[2023-01-26] MEDS ORDERED: 50% Dextrose in Water 50 ML Syringe IVPUSH PRN ×2 (14:38→15:29)
[2023-01-26] MEDS ORDERED: Insulin Lispro 100 Units/ML 3 ML Vial SUBCUT ONE (14:38)
[2023-01-26] MEDS ORDERED: Insulin Lispro 100 Unit/ML 3 ML KwikPen SUBCUT ONE (14:45)
[2023-01-26] MEDS: HYDROmorphone/Normal Saline 6 MG/30 ML PCA Vial IV PRN ×2 (15:28→19:38)
[2023-01-26] MEDS ORDERED: Glucose Gel 15 GM in 37.5 GM Tube PO PRN (15:29)
[2023-01-26] MEDS ORDERED: ClonazePAM 0.5 MG Tab PO PRN (15:32)
[2023-01-26] MEDS ORDERED: Insulin Lispro 100 Unit/ML 3 ML KwikPen SUBCUT PRN (15:42)
[2023-01-26] MEDS ORDERED: Labetalol 20 MG/4 ML Syringe IVPUSH PRN (16:00)
[2023-01-26] MEDS ORDERED: diphenhydrAMINE 50 MG/ML SDV IVPUSH PRN (16:00)
[2023-01-26] MEDS ORDERED: MVI, Adult with Vitamin K 10 ML, Thiamine 200 MG, Zinc/Copper/Manganese/Selenium 1 ML i... IV SCH ×4 (16:00)
[2023-01-26] MEDS ORDERED: Metoclopramide 10 MG/2 ML SDV IVPUSH PRN (16:00)
[2023-01-26] MEDS ORDERED: hydrOXYzine HCL 100 MG/2 ML SDV IM PRN (16:00)
[2023-01-26] MEDS ORDERED: Naloxone 0.4 MG/ML SDV IV PRN (16:00)
[2023-01-26] MEDS: Ondansetron 4 MG/2 ML SDV IVPUSH PRN ×2 (16:01→22:54)
[2023-01-26] MEDS: Insulin Lispro 100 Unit/ML 3 ML KwikPen SUBCUT SCH ×3 (16:31→21:09)
[2023-01-26] MEDS: Pantoprazole 40 MG Vial IVPUSH SCH (16:33)
[2023-01-26] MEDS ORDERED: Lactated Ringers 1,000 ML IV SCH (18:00)
[2023-01-26] MEDS: cefOXitin 2 GM in Sodium Chloride 0.9% 50 ML IV SCH (19:40)
[2023-01-26] MEDS: Cyclobenzaprine 10 MG Tab PO PRN (19:45)
[2023-01-26] MEDS: Insulin Glargine,Human Rec. Analog 100 Units/ML 3 ML Pen SUBCUT SCH (21:11)
[2023-01-26] MEDS: OLANZapine 5 MG Tab PO SCH (21:11)
[2023-01-26] MEDS: Acetaminophen 500 MG Tab PO SCH (21:12)
[2023-01-26] MEDS: lamoTRIgine 100 MG Tab PO SCH (21:13)
[2023-01-27] MEDS: cefOXitin 2 GM in Sodium Chloride 0.9% 50 ML IV SCH ×4 (02:18→19:16)
[2023-01-27 04:36] LABS: BASOPHILS ABSOLUTE AUTO 0.02 K/uL (0.00-0.10); BASOPHILS PERCENT AUTO 0.1 % (0.1-1.3); HEMATOCRIT 34.1 % (34.3-46.0); HEMOGLOBIN 11.2 g/dL (11.2-15.5); IMMATURE GRAN ABSOLUTE AUTO 0.06 K/uL (0.00-0.23); IMMATURE GRAN PERCENT AUTO 0.4 % (0.0-0.7); LYMPHOCYTES ABSOLUTE AUTO 1.32 K/uL (0.8-3.3); LYMPHOCYTES PERCENT AUTO 8.2 % (11.4-47.7); MEAN CORPUSCULAR HGB CONC 32.8 g/dL (31.6-35.5); MEAN CORPUSCULAR VOLUME 106.6 fL (81.4-99.0); MONOCYTES ABSOLUTE AUTO 1.07 K/uL (0.20-0.90); MONOCYTES PERCENT AUTO 6.6 % (3.3-12.6); NEUTROPHILS ABSOLUTE AUTO 13.66 K/uL (1.0-7.6); NEUTROPHILS PERCENT AUTO 84.7 % (40.0-78.1); PLATELET COUNT,PLT 426 K/uL (130-375); WHITE BLOOD CELL COUNT,WBC 16.1 K/uL (3.2-11.0)
[2023-01-27 04:46] LABS: A/G RATIO 0.7 (1.2-2.2); ALANINE AMINOTRANSFERASE,ALT 33 U/L (12-78); ALBUMIN 2.1 g/dL (3.4-5.0); ALKALINE PHOSPHATASE 120 U/L (46-116); ASPARTATE AMNIOTRANSFERASE,AST 21 U/L (15-37); BILIRUBIN TOTAL 0.3 mg/dL (0.2-1.0); BLOOD UREA NITROGEN,BUN 17 mg/dL (7-18); CALCIUM 8.1 mg/dL (8.5-10.1); CARBON DIOXIDE,CO2 29 mmol/L (21-32); CHLORIDE,CL 100 mmol/L (100-108); CREATININE 0.7 mg/dL (0.6-1.0); EST CRCL DRUG DOSING (CG) 98.05 mL/min; ESTIMATED GFR 113 mL/min (>60); GLUCOSE RANDOM 224 mg/dL (74-106); MAGNESIUM 1.4 mg/dL (1.8-2.4); PHOSPHORUS 4.8 mg/dL (2.5-4.9); POTASSIUM,K 5.1 mmol/L (3.6-5.2); SODIUM,NA 135 mmol/L (140-148)
[2023-01-27] MEDS: Cyclobenzaprine 10 MG Tab PO PRN ×2 (04:56→16:17)
[2023-01-27] MEDS: Acetaminophen 500 MG Tab PO SCH ×3 (04:57→20:52)
[2023-01-27 05:09] LABS: ANION GAP 11.1 mmol/L (5.0-14.0)
[2023-01-27] MEDS: HYDROmorphone/Normal Saline 6 MG/30 ML PCA Vial IV PRN ×2 (07:27→15:05)
[2023-01-27] MEDS: Amylase/Lipase/Protease 12,000 Unit Cap.CR PO SCH ×3 (07:30→16:45)
[2023-01-27] MEDS: Insulin Lispro 100 Unit/ML 3 ML KwikPen SUBCUT SCH ×7 (08:59→20:53)
[2023-01-27] MEDS: Celecoxib 200 MG Cap PO SCH ×2 (09:01→20:53)
[2023-01-27] MEDS: Magnesium Sulfate/Water 2 GM in Premix Bag 1 BAG IV SCH ×3 (09:02→20:02)
[2023-01-27] MEDS: Venlafaxine 75 MG Cap.ER PO SCH (09:02)
[2023-01-27] MEDS: lamoTRIgine 100 MG Tab PO SCH ×2 (09:02→20:54)
[2023-01-27] MEDS: SCOPOLAMINE PATCH CHECK TOP SCH (09:03)
[2023-01-27] MEDS: Lactated Ringers 1,000 ML IV SCH (09:04)
[2023-01-27] MEDS ORDERED: MVI, Adult with Vitamin K 10 ML, Thiamine 200 MG, Zinc/Copper/Manganese/Selenium 1 ML i... IV SCH ×4 (16:00)
[2023-01-27] MEDS: Pantoprazole 40 MG Vial IVPUSH SCH (16:08)
[2023-01-27] MEDS: Insulin Glargine,Human Rec. Analog 100 Units/ML 3 ML Pen SUBCUT SCH (20:53)
[2023-01-27] MEDS: OLANZapine 5 MG Tab PO SCH (20:54)
[2023-01-27] MEDS: Melatonin 3 MG Tab PO PRN (21:33)
[2023-01-28] MEDS: cefOXitin 2 GM in Sodium Chloride 0.9% 50 ML IV SCH ×3 (02:52→13:58)
[2023-01-28] MEDS: HYDROmorphone/Normal Saline 6 MG/30 ML PCA Vial IV PRN (03:41)
[2023-01-28] MEDS: Magnesium Sulfate/Water 2 GM in Premix Bag 1 BAG IV SCH ×4 (03:44→20:07)
[2023-01-28 04:33] LABS: HEMOGLOBIN 8.9 g/dL (11.2-15.5); MEAN CORPUSCULAR HEMOGLOBIN 33.8 pg (31.6-35.5); MEAN CORPUSCULAR VOLUME 102.7 fL (81.4-99.0); RED BLOOD CELL COUNT 2.63 M/uL (3.77-5.24); WHITE BLOOD CELL COUNT,WBC 9.3 K/uL (3.2-11.0)
[2023-01-28 05:05] LABS: A/G RATIO 0.7 (1.2-2.2); ALANINE AMINOTRANSFERASE,ALT 28 U/L (12-78); ALKALINE PHOSPHATASE 121 U/L (46-116); ASPARTATE AMNIOTRANSFERASE,AST 18 U/L (15-37); BILIRUBIN TOTAL 0.3 mg/dL (0.2-1.0); BLOOD UREA NITROGEN,BUN 26 mg/dL (7-18); CALCIUM 7.9 mg/dL (8.5-10.1); CARBON DIOXIDE,CO2 28 mmol/L (21-32); CHLORIDE,CL 97 mmol/L (100-108); CREATININE 0.9 mg/dL (0.6-1.0); EST CRCL DRUG DOSING (CG) 76.26 mL/min; ESTIMATED GFR 84 mL/min (>60); GLUCOSE RANDOM 201 mg/dL (74-106); SODIUM,NA 130 mmol/L (140-148); TSH ULTRASENSITIVE 4.043 uIU/mL (0.358-3.740)
[2023-01-28] MEDS: Acetaminophen 500 MG Tab PO SCH ×3 (06:04→20:08)
[2023-01-28] MEDS ORDERED: Bupivacaine 0.5% 50 ML MDV ONE (06:48)
[2023-01-28] MEDS ORDERED: Lidocaine 1% with EPINEPHrine 1:100,000 50 ML MDV ONE (06:48)
[2023-01-28] MEDS ORDERED: Meropenem 500 MG SDV ONE (06:48)
[2023-01-28] MEDS ORDERED: Propofol 200 MG/20 ML SDV ONE ×2 (07:23→08:02)
[2023-01-28] MEDS ORDERED: fentaNYL 100 MCG/2 ML SDV ONE (07:24)
[2023-01-28] MEDS ORDERED: Lactated Ringers 1,000 ML ONE (07:42)
[2023-01-28] MEDS: Acetaminophen 500 MG Tab PO PRN (09:09)
[2023-01-28] MEDS: Cyclobenzaprine 10 MG Tab PO PRN ×2 (09:09→16:59)
[2023-01-28] MEDS: Amylase/Lipase/Protease 12,000 Unit Cap.CR PO SCH ×3 (09:10→16:59)
[2023-01-28] MEDS: Venlafaxine 75 MG Cap.ER PO SCH (09:10)
[2023-01-28] MEDS: lamoTRIgine 100 MG Tab PO SCH ×2 (09:10→20:09)
[2023-01-28] MEDS: Celecoxib 200 MG Cap PO SCH ×2 (09:10→20:08)
[2023-01-28] MEDS: Insulin Lispro 100 Unit/ML 3 ML KwikPen SUBCUT SCH ×7 (09:12→21:09)
[2023-01-28] MEDS: SCOPOLAMINE PATCH CHECK TOP SCH (09:29)
[2023-01-28] MEDS: oxyCODONE 5 MG Tab PO PRN ×4 (09:46→22:06)
[2023-01-28] MEDS: Pantoprazole 40 MG Tab.CR PO SCH (11:33)
[2023-01-28] MEDS: Lactated Ringers 1,000 ML IV SCH (20:06)
[2023-01-28] MEDS: OLANZapine 5 MG Tab PO SCH (20:08)
[2023-01-28] MEDS: Ondansetron 4 MG/2 ML SDV IVPUSH PRN (20:15)
[2023-01-28] MEDS: Insulin Glargine,Human Rec. Analog 100 Units/ML 3 ML Pen SUBCUT SCH (21:20)
[2023-01-29] MEDS: oxyCODONE 5 MG Tab PO PRN ×6 (02:12→22:19)
[2023-01-29] MEDS: Magnesium Sulfate/Water 2 GM in Premix Bag 1 BAG IV SCH ×4 (02:13→16:21)
[2023-01-29 04:31] LABS: BASOPHILS PERCENT AUTO 0.1 % (0.1-1.3); EOSINOPHILS ABSOLUTE AUTO 0.05 K/uL (0.00-0.40); EOSINOPHILS PERCENT AUTO 0.6 % (0.0-5.4); HEMATOCRIT 22.6 % (34.3-46.0); HEMOGLOBIN 7.4 g/dL (11.2-15.5); IMMATURE GRAN ABSOLUTE AUTO 0.04 K/uL (0.00-0.23); IMMATURE GRAN PERCENT AUTO 0.5 % (0.0-0.7); LYMPHOCYTES ABSOLUTE AUTO 1.91 K/uL (0.8-3.3); LYMPHOCYTES PERCENT AUTO 24.6 % (11.4-47.7); MEAN CORPUSCULAR HEMOGLOBIN 34.4 pg (31.6-35.5); MEAN CORPUSCULAR HGB CONC 32.7 g/dL (31.6-35.5); MEAN CORPUSCULAR VOLUME 105.1 fL (81.4-99.0); MONOCYTES ABSOLUTE AUTO 0.49 K/uL (0.20-0.90); MONOCYTES PERCENT AUTO 6.3 % (3.3-12.6); NEUTROPHILS ABSOLUTE AUTO 5.27 K/uL (1.0-7.6); NEUTROPHILS PERCENT AUTO 67.9 % (40.0-78.1); PLATELET COUNT,PLT 318 K/uL (130-375); RED BLOOD CELL COUNT 2.15 M/uL (3.77-5.24); WHITE BLOOD CELL COUNT,WBC 7.8 K/uL (3.2-11.0)
[2023-01-29 04:54] LABS: A/G RATIO 0.6 (1.2-2.2); ALANINE AMINOTRANSFERASE,ALT 24 U/L (12-78); ALBUMIN 1.8 g/dL (3.4-5.0); ALKALINE PHOSPHATASE 109 U/L (46-116); ASPARTATE AMNIOTRANSFERASE,AST 17 U/L (15-37); BILIRUBIN TOTAL 0.3 mg/dL (0.2-1.0); BLOOD UREA NITROGEN,BUN 12 mg/dL (7-18); CALCIUM 7.6 mg/dL (8.5-10.1); CARBON DIOXIDE,CO2 29 mmol/L (21-32); CHLORIDE,CL 101 mmol/L (100-108); CREATININE 0.5 mg/dL (0.6-1.0); EST CRCL DRUG DOSING (CG) 137.28 mL/min; ESTIMATED GFR 123 mL/min (>60); GLUCOSE RANDOM 399 mg/dL (74-106); MAGNESIUM 2.7 mg/dL (1.8-2.4); PHOSPHORUS 2.7 mg/dL (2.5-4.9); POTASSIUM,K 5.2 mmol/L (3.6-5.2); PROTEIN TOTAL,TP 4.8 g/dL (6.4-8.2); SODIUM,NA 135 mmol/L (140-148)
[2023-01-29 05:07] LABS: BASOPHILS ABSOLUTE AUTO 0.01 K/uL (0.00-0.10)
[2023-01-29 05:09] LABS: ANION GAP 10.2 mmol/L (5.0-14.0)
[2023-01-29] MEDS: Cyclobenzaprine 10 MG Tab PO PRN ×2 (05:25→14:18)
[2023-01-29] MEDS: Acetaminophen 500 MG Tab PO SCH ×3 (05:25→20:06)
[2023-01-29] MEDS: Pantoprazole 40 MG Tab.CR PO SCH (07:45)
[2023-01-29] MEDS: Insulin Lispro 100 Unit/ML 3 ML KwikPen SUBCUT SCH ×7 (07:47→21:52)
[2023-01-29] MEDS: Amylase/Lipase/Protease 12,000 Unit Cap.CR PO SCH ×3 (07:48→17:13)
[2023-01-29] MEDS ORDERED: Albumin Human 50 GM in Premix Bag 1 BAG IV SCH (09:00)
[2023-01-29] MEDS: Docusate Sodium 100 MG Cap PO SCH ×2 (09:13→20:06)
[2023-01-29] MEDS: Celecoxib 200 MG Cap PO SCH ×2 (09:13→20:07)
[2023-01-29] MEDS: Bisacodyl 5 MG Tab PO SCH ×2 (09:13→20:06)
[2023-01-29] MEDS: lamoTRIgine 100 MG Tab PO SCH ×2 (09:13→20:07)
[2023-01-29] MEDS: Venlafaxine 75 MG Cap.ER PO SCH (09:13)
[2023-01-29] MEDS: Albumin Human 25 GM in Premix Bag 1 BAG IV SCH (09:47)
[2023-01-29] MEDS: Acetaminophen 500 MG Tab PO PRN (10:12)
[2023-01-29] MEDS ORDERED: Albumin Human 25 GM in Premix Bag 1 BAG IV SCH (12:30)
[2023-01-29] MEDS: Lactated Ringers 1,000 ML IV SCH (14:19)
[2023-01-29] MEDS ORDERED: HYDROmorphone 1 MG/ML Syringe IVPUSH ONE (19:44)
[2023-01-29] MEDS: OLANZapine 5 MG Tab PO SCH (20:07)
[2023-01-29] MEDS: Melatonin 3 MG Tab PO PRN (20:13)
[2023-01-29] MEDS: Insulin Glargine,Human Rec. Analog 100 Units/ML 3 ML Pen SUBCUT SCH (21:52)
[2023-01-30] MEDS: Cyclobenzaprine 10 MG Tab PO PRN (00:19)
[2023-01-30] MEDS: oxyCODONE 5 MG Tab PO PRN ×3 (02:28→10:59)
[2023-01-30 04:16] LABS: HEMATOCRIT 27.2 % (34.3-46.0); HEMOGLOBIN 9.1 g/dL (11.2-15.5); MEAN CORPUSCULAR HEMOGLOBIN 33.8 pg (31.6-35.5); MEAN CORPUSCULAR HGB CONC 33.5 g/dL (31.6-35.5); MEAN CORPUSCULAR VOLUME 101.1 fL (81.4-99.0); RED BLOOD CELL COUNT 2.69 M/uL (3.77-5.24); WHITE BLOOD CELL COUNT,WBC 6.4 K/uL (3.2-11.0)
[2023-01-30 04:47] LABS: A/G RATIO 0.9 (1.2-2.2); ALANINE AMINOTRANSFERASE,ALT 27 U/L (12-78); ALBUMIN 2.5 g/dL (3.4-5.0); ALKALINE PHOSPHATASE 104 U/L (46-116); ASPARTATE AMNIOTRANSFERASE,AST 28 U/L (15-37); BILIRUBIN TOTAL 0.5 mg/dL (0.2-1.0); BLOOD UREA NITROGEN,BUN 8 mg/dL (7-18); CALCIUM 8.2 mg/dL (8.5-10.1); CARBON DIOXIDE,CO2 27 mmol/L (21-32); CHLORIDE,CL 103 mmol/L (100-108); CREATININE 0.5 mg/dL (0.6-1.0); EST CRCL DRUG DOSING (CG) 137.28 mL/min; ESTIMATED GFR 123 mL/min (>60); GLUCOSE RANDOM 194 mg/dL (74-106); MAGNESIUM 1.8 mg/dL (1.8-2.4); PHOSPHORUS 3.4 mg/dL (2.5-4.9); POTASSIUM,K 4.6 mmol/L (3.6-5.2); PRO B-TYPE NATRIUR PEPT,BNPPRO 391 pg/mL (5-125); PROTEIN TOTAL,TP 5.3 g/dL (6.4-8.2); SODIUM,NA 138 mmol/L (140-148)
[2023-01-30 05:07] LABS: ANION GAP 12.6 mmol/L (5.0-14.0)
[2023-01-30] MEDS: Acetaminophen 500 MG Tab PO SCH (06:24)
[2023-01-30 06:26] VITALS: BP 119/79; PULSE 88
[2023-01-30] MEDS ORDERED: HYDROmorphone 1 MG/ML Syringe IVPUSH ONE (07:16)
[2023-01-30] MEDS: Albumin Human 25 GM in Premix Bag 1 BAG IV SCH (07:46)
[2023-01-30] MEDS: Amylase/Lipase/Protease 12,000 Unit Cap.CR PO SCH (09:20)
[2023-01-30] MEDS: Pantoprazole 40 MG Tab.CR PO SCH (09:20)
[2023-01-30] MEDS: Bisacodyl 5 MG Tab PO SCH (09:20)
[2023-01-30] MEDS: Docusate Sodium 100 MG Cap PO SCH (09:20)
[2023-01-30] MEDS: Celecoxib 200 MG Cap PO SCH (09:20)
[2023-01-30] MEDS: Venlafaxine 75 MG Cap.ER PO SCH (09:21)
[2023-01-30] MEDS: lamoTRIgine 100 MG Tab PO SCH (09:21)
[2023-01-30] MEDS: Insulin Lispro 100 Unit/ML 3 ML KwikPen SUBCUT SCH ×2 (09:27)
== END 2023-01-30 11:43 | disposition home or self-care (01) | DRG 331 ==
LOC: JP.SDS 09:34 → JP.MS 16:05
PROVIDERS: ADMIT Surgery; ATTEND Surgery
PROC: 0DT80ZZ Resection of Small Intestine, Open Approach (ICD-10-PCS; principal; 2023-01-26)
PROC: 0D1N0ZP Bypass Sigmoid Colon to Rectum, Open Approach (ICD-10-PCS; 2023-01-26)
PROC: 0DBW0ZX Excision of Peritoneum, Open Approach, Diagnostic (ICD-10-PCS; 2023-01-26)
PROC: 3E0M05Z Introduction of Adhesion Barrier into Peritoneal Cavity, Open Approach (ICD-10-PCS; 2023-01-26)
PROC: 0WQF0ZZ Repair Abdominal Wall, Open Approach (ICD-10-PCS; 2023-01-28)
DX: K56.51 Intestinal adhesions [bands], with partial obstruction (principal); K56.2 Volvulus; I25.10 Atherosclerotic heart disease of native coronary artery without angina pectoris; E78.00 Pure hypercholesterolemia, unspecified; K59.09 Other constipation; K21.9 Gastro-esophageal reflux disease without esophagitis; M79.7 Fibromyalgia; F41.9 Anxiety disorder, unspecified; F32.A Depression, unspecified; E10.9 Type 1 diabetes mellitus without complications; Z20.822 Contact with and (suspected) exposure to COVID-19; E66.9 Obesity, unspecified; D64.9 Anemia, unspecified; Z88.8 Allergy status to other drugs, medicaments and biological substances; Z79.4 Long term (current) use of insulin; Z98.890 Other specified postprocedural states; Z79.899 Other long term (current) drug therapy; Z68.27 Body mass index [BMI] 27.0-27.9, adult; Z90.49 Acquired absence of other specified parts of digestive tract; Z98.51 Tubal ligation status; Z87.891 Personal history of nicotine dependence
CPT/HCPCS: 36415; 36430; 80053; 82728; 82947; 83036; 83735; 83880; 84100; 84443; 85025; 85027; 86850; 86870; 86900; 86901; 86920; 86922; 88305; 88307; A9270-GY; C9113; J0131; J0171; J0694; J1100; J1170; J1815; J1815-GY; J2020; J2185; J2405; J2704; J2710; J2795; J3010; J3411; J3475; J3490; J7120; J7121; P9016; P9047; U0002